=== PATIENT | male | born 1970 | race Caucasian/White ===

== ENCOUNTER 2019-03-03 09:39 | Inpatient (IN) | payer OTHER ==
[2019-03-03 10:33] VITALS: BMI 45.6
--- NOTE | 2019-03-03 11:03 | HP ---
CIWA Score Nausea/Vomitin-No Nausea/No Vomiting Muscle Tremors: 2 Anxiety: 2 Agitation: 2 Paroxysmal Sweats: No Perspiration Orientation: 0-Oriented Tacttile Disturbances: 2-Mild Itch/Numbness/Burn Auditory Disturbances: 0-None Visual Disturbances: 0-None Headache: 5-Severe CIWA-Ar Total Score: 13 - Admission Criteria OASAS Guidelines: Admission for Medically Managed Detox: Requires at least one of the followin. CIWA greater than 12 2. Seizures within the past 24 hours 3. Delirium tremens within the past 24 hours 4. Hallucinations within the past 24 hours 5. Acute intervention needed for co occurring medical disorder 6. Acute intervention needed for co occurring psychiatric disorder 7. Severe withdrawal that cannot be handled at a lower level of care (continued vomiting, continued diarrhea, abnormal vital signs) requiring intravenous medication and/or fluids 8. Admission ROS S - HPI Allergies/Adverse Reactions: Allergies Allergy/AdvReac Type Severity Reaction Status Date / Time Fish Containing Products Allergy Severe Hives Verified 03/03/19 10:10 Pork/Porcine Containing Allergy Verified 03/03/19 13:04 Products History of Present Illness: pt here requesting detox from etoh use , reports use since yesterday x " most of " 2 pints liquor brought into residential facility by another resident , pt sent to [facility] by facility , currently reports " I need another drink " , pt states he has been in a residential program x 90 days - sober , and in [facility] incarceration x 90 days prior , reports tremors , blackouts , denies seizures , denies falls while intoxicated, first age of use 16 , heavily since 20 , intermittent sobriety x 2 years w/ AA meetings 2011 , relapsed after 2/2 family issues . pMHX : htn , DM dx 2014 , DM neuropathy , hypothyroidism , hld PSHX : denies PSych : bipolar d/o , depression , denies SI / HI , suicide attempts x 3 most recently 2017 w/ meds . tobacco : 1/2 ppd . SHX : lives in residential program [id number]. Exam Limitations: Clinical Condition, Intoxication - Ebola screening Have you traveled outside of the country in the last 21 days: No (N) Have you had contact with anyone from an Ebola affected area: No Do you have a fever: No - Review of Systems Constitutional: See HPI EENT: reports: See HPI Respiratory: reports: No Symptoms reported Cardiac: reports: No Symptoms Reported GI: reports: Nausea : reports: No Symptoms Reported Musculoskeletal: reports: No Symptoms Reported Integumentary: reports: No Symptoms Reported Neuro: reports: See HPI, Headache, Numbness, Paresthesia, Pre-Existing Deficit, Tremors Endocrine: reports: See HPI Psychiatric: reports: Orientated x3, Anxious Patient History - Smoking Cessation Smoking history: Current every day smoker Have you smoked in the past 12 months: Yes Hx Chewing Tobacco Use: No Initiated information on smoking cessation: No - Substances abused Alcohol Substance route: Oral Frequency: Daily Amount used: 3 pints Age of first use: 16 Date of last use: 03/02/19 Family Disease History - Family Disease History Family Disease History: Diabetes: Mother (d. 80 HTN, DM , esrd on HD ), Other : Father (unknown ), Mother, Brother (1 , A & W), Sister (3, A & W ), Son (6, A & W ) Admission Physical Exam S - Vital Signs Vital Signs: Vital Signs - 24 hr 03/03/19 03/03/19 10:26 10:52 Temperature 97.9 F 97.9 F Pulse Rate 104 H 104 H Respiratory 19 19 Rate Blood Pressure 126/84 126/84 - Physical General Appearance: Yes: Disheveled, Alcohol on Breath, Intoxicated, Tremorous, Anxious HEENTM: Yes: EOMI, Hearing grossly Normal, Normocephalic Respiratory: Yes: Chest Non-Tender, Lungs Clear, Normal Breath Sounds, No Respiratory Distress, No Accessory Muscle Use Neck: Yes: No masses,lesions,Nodules, Trachea in good position Cardiology: Yes: Regular Rhythm, Regular Rate, S1, S2, Tachycardia Abdominal: Yes: Non Tender, Soft, Protuberent Musculoskeletal: Yes: Gait Steady Extremities: Yes: Normal Capillary Refill, Non-Tender, Tremors, Other (bret LE varicose v) Neurological: Yes: Fully Oriented, Alert, Motor Strength 5/5 Integumentary: Yes: Warm - Diagnostic (1) Alcohol intoxication Current Visit: Yes Status: Acute (2) Alcohol abuse Current Visit: Yes Status: Acute Breathalyzer - Breathalyzer Breathalyzer: 0.026 Urine Drug Screen - Test Device Lot number: [id number] Expiration date: 12/01/20 - Control Is test valid?: Yes - Results Drug screen NEGATIVE: Yes Inpatient Rehab Admission - Rehab Decision to Admit Inpatient rehab admission?: No
[2019-03-03] MEDS ORDERED: ALBUTEROL SO4 8 GM HFA INHALER IH PRN (12:56)
[2019-03-03] MEDS ORDERED: ACETAMINOPHEN 325 MG TABLET (FP) PO PRN ×2 (13:02)
[2019-03-03] MEDS ORDERED: MAGNESIUM HYDROX 2400MG/30ML ORAL SUSPENSION 30 ML CUP PO PRN (13:02)
[2019-03-03] MEDS ORDERED: MELATONIN 5 MG TABLETS PO PRN (13:02)
[2019-03-03] MEDS ORDERED: diazePAM 5 MG TABLET PO PRN (13:02)
[2019-03-03] MEDS ORDERED: NICOTINE POLACRILEX 2 MG GUM BUC PRN (13:02)
[2019-03-03] MEDS ORDERED: MAGNESIUM CITRATE 300 ML BOTTLE PO PRN (13:02)
[2019-03-03] MEDS ORDERED: hydrOXYzine PAMOATE 25 MG CAPSULE (FP) PO PRN (13:02)
[2019-03-03] MEDS ORDERED: MENTHOL/PHENOL 1 EACH UD MM PRN (13:02)
[2019-03-03] MEDS ORDERED: BISMUTH SUBSALICYLATE 524 MG/30 ML UD PO PRN (13:02)
[2019-03-03] MEDS ORDERED: MAG HYDROX/AL HYDROX/SIMETH 30 ML UNIT-DOSE CUP PO PRN (13:02)
[2019-03-03] MEDS ORDERED: guaiFENesin/D-METHORPHAN HB 10 ML UNIT-DOSE CUPS PO PRN (13:06)
[2019-03-03] MEDS: LEVOTHYROXINE NA 25 MCG TABLET (FP) PO SCH (14:46)
[2019-03-03] MEDS: diazePAM 5 MG TABLET PO SCH ×2 (14:46→22:01)
[2019-03-03] MEDS: ASPIRIN 81 MG CHEWABLE TABLETS PO SCH (14:47)
--- NOTE | 2019-03-03 15:40 | CONSULT ---
[facility] Psychiatric Consult - Data Date of interview: 03/03/19 Admission source: [facility] Identifying data: Patient is a 48 year old single male, father of five, unemployed, homeless, and is supported by public assistance. This is patient's first admission to detox at [facility]. Patient admitted to for alcohol dependence. Substance Abuse History: Substances abused. Alcohol. Substance route: Oral. Frequency: Daily. Amount used: 3 pints. Age of first use: 16. Date of last use: 03/02/19 Medical History: hypertension, diabetes, DM Neuropathy, hypothyroidism, hyperlipidemia Psychiatric History: Patient's first psychiatric contact was in 2004 after reporting severe depression and auditory/visual hallucinations. Mr. Nunez was treated with remeron and seroquel. Throughout the years he reports a total of eight psychiatric hospitalizations ([facility], [facility], [facility], [facility]) most recently at [facility] [place] in October of 2017 for depression and auditory hallucinations. Mr. Nunez reports h/o one suicide attempt via overdose in 2011 after hearing command auditory hallucinations to harm himself. He also reports h/o self multilation via cutting. Mr. Nunez is currently receiving psychiatric care at [facility] and is prescribed haldol 5mg + Depakote 1000mg HS + Wellbutrin 300mg XL. He was initally on haldol 10mg but states the haldol was lowered to 5mg last week. Medications confirmed through external records. Patient also appears to be a reliable historian. At present, patient denies psychotic, manic, or depressive symptoms. Physical/Sexual Abuse/Trauma History: denies Mental Status Exam - Mental Status Exam Alert and Oriented to: Time, Place, Person Cognitive Function: Good Patient Appearance: Well Groomed Mood: Euthymic Affect: Appropriate Patient Behavior: Cooperative Speech Pattern: Appropriate Voice Loudness: Moderately Soft/Quiet Thought Process: Goal Oriented Thought Disorder: Not Present Hallucinations: Denies Suicidal Ideation: Denies Homicidal Ideation: Denies Insight/Judgement: Poor Sleep: Fair Appetite: Fair Muscle strength/Tone: Normal Gait/Station: Normal Psychiatric Findings - Problem List ([place] 1, 2,3) (1) Schizoaffective disorder Current Visit: Yes Status: Chronic Qualifiers: Schizoaffective disorder type: depressive Qualified Code(s): F25.1 - Schizoaffective disorder, depressive type (2) Alcohol abuse Current Visit: Yes Status: Acute - Initial Treatment Plan Initial Treatment Plan: Psychoeducation provided. Detoxification in progress. Will order Wellbutrin 300mg XL daily Haldol 5mg HS + Depakote 1000mg HS. Valproic acid level ordered. Benefits and side effects discussed. Verbal consent given.
[2019-03-03] MEDS: METFORMIN HCL 500 MG PO SCH (17:21)
[2019-03-03] MEDS: LOSARTAN POTASSIUM 25 MG TABLET PO SCH (17:21)
[2019-03-03] MEDS: CEPHALEXIN MONOHYDRATE 250 MG CAPSULE (FP) PO SCH ×2 (17:21→23:20)
[2019-03-03] MEDS: INSULIN SLIDING SCALE (NOVOLOG) 1 VIAL SQ SCH ×2 (17:22→22:02)
[2019-03-03] MEDS: DIVALPROEX SODIUM 500 MG TABLET E.C. PO SCH (22:01)
[2019-03-03] MEDS: THIAMINE HCL 100 MG TABLET (FP) PO SCH (22:01)
[2019-03-03] MEDS: HALOPERIDOL 5 MG TABLET (FP) PO SCH (22:02)
[2019-03-03] MEDS: INSULIN (LEVEMIR) 100 UNITS/ML UNITS SQ SCH (22:23)
[2019-03-04] MEDS: CEPHALEXIN MONOHYDRATE 250 MG CAPSULE (FP) PO SCH ×4 (05:31→23:36)
[2019-03-04] MEDS: diazePAM 5 MG TABLET PO SCH ×3 (05:31→23:04)
[2019-03-04] MEDS: INSULIN SLIDING SCALE (NOVOLOG) 1 VIAL SQ SCH ×3 (06:18→17:24)
[2019-03-04] MEDS: METFORMIN HCL 500 MG PO SCH ×2 (06:18→17:19)
[2019-03-04] MEDS: LEVOTHYROXINE NA 25 MCG TABLET (FP) PO SCH (06:18)
[2019-03-04] MEDS: PRENATAL VITAMINS W/ FOLIC ACID TABLET (FP) PO SCH (10:24)
[2019-03-04] MEDS: LOSARTAN POTASSIUM 25 MG TABLET PO SCH (10:24)
[2019-03-04] MEDS: ASPIRIN 81 MG CHEWABLE TABLETS PO SCH (10:24)
[2019-03-04 10:40] LABS: HEMATOCRIT 42.9 % (35.4-49); HEMOGLOBIN 13.7 GM/dL (11.7-16.9); MCH 29.1 pg (25.7-33.7); MEAN CELL VOLUME 91.1 fl (80-96); MEAN PLT VOLUME 8.1 fl (7.5-11.1); PLATELET COUNT 329 K/MM3 (134-434); RBC 4.71 M/mm3 (4.00-5.60); RDW 14.3 % (11.9-15.9); WHITE BLOOD COUNT 11.1 K/mm3 (4.0-10.0)
[2019-03-04 11:42] LABS: ALBUMIN 3.5 g/dl (3.4-5.0); BILIRUBIN,TOTAL 0.5 mg/dL (0.2-1); CREATININE 0.8 mg/dL (0.55-1.3); POTASSIUM 3.9 mmol/L (3.5-5.1); TOT PROT 6.6 g/dl (6.4-8.2)
--- NOTE | 2019-03-04 16:49 | PN ---
S CIWA - CIWA Score Nausea/Vomitin-No Nausea/No Vomiting Muscle Tremors: 3 Anxiety: 2 Agitation: 0-Normal Activity Paroxysmal Sweats: 3 Orientation: 2-Disoriented Date<2 days Tacttile Disturbances: 0-None Auditory Disturbances: 3-Moderate Harsh/Frighten Visual Disturbances: 1-Very Mild Sensitivity Headache: 0-None Present CIWA-Ar Total Score: 14 BHS Progress Note (SOAP) Subjective: Sweating, Fatigue, Tremors. Objective: PATIENT A & O X 2 (UNCERTAIN ABOUT CURRENT DAY / DATE). PATIENT OBSERVED AMBULATING ON UNIT UNASSISTED. IN NO ACUTE DISTRESS. PATIENT IS AFEBRILE. 03/04/19 16:50 Vital Signs Temperature 97.5 F L 03/04/19 13:45 Pulse Rate 93 H 03/04/19 13:45 Respiratory Rate 20 03/04/19 13:45 Blood Pressure 110/64 03/04/19 13:45 O2 Sat by Pulse Oximetry (%) Laboratory Tests 03/03/19 03/03/19 03/03/19 13:41 16:22 21:41 WBC RBC Hgb Hct MCV MCH MCHC RDW Plt Count MPV Sodium Potassium Chloride Carbon Dioxide Anion Gap BUN Creatinine Est GFR (CKD-EPI)AfAm Est GFR (CKD-EPI)NonAf POC Glucometer 125 163 127 Random Glucose Calcium Total Bilirubin AST ALT Alkaline Phosphatase Total Protein Albumin Valproic Acid 03/04/19 03/04/19 03/04/19 05:31 07:35 07:35 WBC 11.1 H RBC 4.71 Hgb 13.7 Hct 42.9 MCV 91.1 MCH 29.1 MCHC 32.0 RDW 14.3 Plt Count 329 MPV 8.1 Sodium 142 Potassium 3.9 Chloride 103 Carbon Dioxide 27 Anion Gap 12 BUN 11 Creatinine 0.8 Est GFR (CKD-EPI)AfAm 124.16 Est GFR (CKD-EPI)NonAf 107.13 POC Glucometer 116 Random Glucose 113 H Calcium 9.0 Total Bilirubin 0.5 AST 17 ALT 21 Alkaline Phosphatase 78 Total Protein 6.6 Albumin 3.5 Valproic Acid 03/04/19 07:35 WBC RBC Hgb Hct MCV MCH MCHC RDW Plt Count MPV Sodium Potassium Chloride Carbon Dioxide Anion Gap BUN Creatinine Est GFR (CKD-EPI)AfAm Est GFR (CKD-EPI)NonAf POC Glucometer Random Glucose Calcium Total Bilirubin AST ALT Alkaline Phosphatase Total Protein Albumin Valproic Acid 55.1 LABS NOTED. RPR RESULT PENDING. 03/04/19 16:52 Assessment: 03/04/19 16:51 WITHDRAWAL SYMPTOMS. LEUKOCYTOSIS. 03/04/19 16:52 Plan: CONTINUE DETOX. INCREASE DAILY PO FLUID INTAKE. REPEAT CBC TOMORROW AM FOR ELEVATED ADMISSION WBC LEVEL.
[2019-03-04] MEDS: HALOPERIDOL 5 MG TABLET (FP) PO SCH (23:00)
[2019-03-04] MEDS: THIAMINE HCL 100 MG TABLET (FP) PO SCH (23:00)
[2019-03-04] MEDS: DIVALPROEX SODIUM 500 MG TABLET E.C. PO SCH (23:00)
[2019-03-04] MEDS: INSULIN (LEVEMIR) 100 UNITS/ML UNITS SQ SCH (23:03)
[2019-03-05] MEDS: CEPHALEXIN MONOHYDRATE 250 MG CAPSULE (FP) PO SCH ×4 (05:22→23:29)
[2019-03-05] MEDS ORDERED: diazePAM 5 MG TABLET PO ONE (06:00)
[2019-03-05] MEDS: INSULIN SLIDING SCALE (NOVOLOG) 1 VIAL SQ SCH ×2 (06:12→17:06)
[2019-03-05] MEDS: METFORMIN HCL 500 MG PO SCH ×2 (06:13→17:04)
[2019-03-05] MEDS: LEVOTHYROXINE NA 25 MCG TABLET (FP) PO SCH (06:14)
[2019-03-05] MEDS: LOSARTAN POTASSIUM 25 MG TABLET PO SCH (10:40)
[2019-03-05] MEDS: PRENATAL VITAMINS W/ FOLIC ACID TABLET (FP) PO SCH (10:41)
[2019-03-05 10:51] LABS: BASO % 0.5 % (0-2.0); EOS % 2.2 % (0-4.5); HEMATOCRIT 43.5 % (35.4-49); LYMPH % 44.1 % (8-40); MCH 29.3 pg (25.7-33.7); MCHC 32.2 g/dl (32.0-35.9); MEAN CELL VOLUME 90.8 fl (80-96); MEAN PLT VOLUME 7.9 fl (7.5-11.1); NEUT % 45.2 % (42.8-82.8); PLATELET COUNT 368 K/MM3 (134-434); WHITE BLOOD COUNT 12.5 K/mm3 (4.0-10.0)
[2019-03-05] MEDS: ASPIRIN 81 MG CHEWABLE TABLETS PO SCH (11:29)
--- NOTE | 2019-03-05 15:25 | PN ---
S CIWA - CIWA Score Nausea/Vomitin-Mild Nausea/No Vomiting Muscle Tremors: 3 Anxiety: 3 Agitation: 3 Paroxysmal Sweats: 3 Orientation: 0-Oriented Tacttile Disturbances: 0-None Auditory Disturbances: 0-None Visual Disturbances: 0-None Headache: 0-None Present CIWA-Ar Total Score: 13 BHS Progress Note (SOAP) Subjective: shakes sweat Objective: 03/05/19 15:28 A & O x 3 anxious ambulating steadily Vital Signs Temp 97.2 F L 03/05/19 09:47 Pulse 109 H 03/05/19 09:47 Resp 18 03/05/19 09:47 BP 132/80 03/05/19 09:47 Pulse Ox Laboratory Last Values WBC 12.5 K/mm3 (4.0-10.0) H 03/05/19 07:40 RBC 4.80 M/mm3 (4.00-5.60) 03/05/19 07:40 Hgb 14.0 GM/dL (11.7-16.9) 03/05/19 07:40 Hct 43.5 % (35.4-49) 03/05/19 07:40 MCV 90.8 fl (80-96) 03/05/19 07:40 MCH 29.3 pg (25.7-33.7) 03/05/19 07:40 MCHC 32.2 g/dl (32.0-35.9) 03/05/19 07:40 RDW 14.0 % (11.9-15.9) 03/05/19 07:40 Plt Count 368 K/MM3 (134-434) 03/05/19 07:40 MPV 7.9 fl (7.5-11.1) 03/05/19 07:40 Absolute Neuts (auto) 5.7 K/mm3 (1.5-8.0) 03/05/19 07:40 Neutrophils % 45.2 % (42.8-82.8) 03/05/19 07:40 Lymphocytes % 44.1 % (8-40) H 03/05/19 07:40 Monocytes % 8.0 % (3.8-10.2) 03/05/19 07:40 Eosinophils % 2.2 % (0-4.5) 03/05/19 07:40 Basophils % 0.5 % (0-2.0) 03/05/19 07:40 Nucleated RBC % 0 % (0-0) 03/05/19 07:40 Sodium 142 mmol/L (136-145) 03/04/19 07:35 Potassium 3.9 mmol/L (3.5-5.1) 03/04/19 07:35 Chloride 103 mmol/L (98-107) 03/04/19 07:35 Carbon Dioxide 27 mmol/L (21-32) 03/04/19 07:35 Anion Gap 12 MMOL/L (8-16) 03/04/19 07:35 BUN 11 mg/dL (7-18) 03/04/19 07:35 Creatinine 0.8 mg/dL (0.55-1.3) 03/04/19 07:35 Est GFR (CKD-EPI)AfAm 124.16 03/04/19 07:35 Est GFR (CKD-EPI)NonAf 107.13 03/04/19 07:35 POC Glucometer 115 UNITS (80-120) 03/05/19 05:21 Random Glucose 113 mg/dL (74-106) H 03/04/19 07:35 Calcium 9.0 mg/dL (8.5-10.1) 03/04/19 07:35 Total Bilirubin 0.5 mg/dL (0.2-1) 03/04/19 07:35 AST 17 U/L (15-37) 03/04/19 07:35 ALT 21 U/L (13-61) 03/04/19 07:35 Alkaline Phosphatase 78 U/L (45-117) 03/04/19 07:35 Total Protein 6.6 g/dl (6.4-8.2) 03/04/19 07:35 Albumin 3.5 g/dl (3.4-5.0) 03/04/19 07:35 Valproic Acid 55.1 ug/ml (50-100) 03/04/19 07:35 RPR Titer Nonreactive (NONREACTIVE) 03/04/19 07:35 Labs noted Elevated random glucose -pt is diabetic Assessment: 03/05/19 15:31 withdrawal sx Plan: continue detox Increase water hydration continue hyperglycemic agent
--- NOTE | 2019-03-05 15:42 | EKG ---
Test Reason : Blood Pressure : / mmHG Vent. Rate : 097 BPM Atrial Rate : 097 BPM P-R Int : 148 ms QRS Dur : 096 ms QT Int : 358 ms P-R-T Axes : 061 062 013 degrees QTc Int : 454 ms NORMAL SINUS RHYTHM NORMAL ECG NO PREVIOUS ECGS AVAILABLE Confirmed by ENRIKE MERINO MD ([id number]) on 03/05/2019 3:41:33 PM Referred By: Confirmed By:ENRIKE MERINO MD
[2019-03-05] MEDS: HALOPERIDOL 5 MG TABLET (FP) PO SCH (22:16)
[2019-03-05] MEDS: DIVALPROEX SODIUM 500 MG TABLET E.C. PO SCH (22:16)
[2019-03-05] MEDS: INSULIN (LEVEMIR) 100 UNITS/ML UNITS SQ SCH (22:16)
[2019-03-05] MEDS: THIAMINE HCL 100 MG TABLET (FP) PO SCH (22:16)
[2019-03-06] MEDS: CEPHALEXIN MONOHYDRATE 250 MG CAPSULE (FP) PO SCH (05:24)
[2019-03-06] MEDS: METFORMIN HCL 500 MG PO SCH (06:21)
[2019-03-06] MEDS: LEVOTHYROXINE NA 25 MCG TABLET (FP) PO SCH (06:21)
[2019-03-06] MEDS: INSULIN SLIDING SCALE (NOVOLOG) 1 VIAL SQ SCH (06:22)
[2019-03-06 09:18] VITALS: BP 125/81; PULSE 108; TEMP 97.5
[2019-03-06] MEDS: PRENATAL VITAMINS W/ FOLIC ACID TABLET (FP) PO SCH (09:34)
[2019-03-06] MEDS: ASPIRIN 81 MG CHEWABLE TABLETS PO SCH (09:34)
[2019-03-06] MEDS: LOSARTAN POTASSIUM 25 MG TABLET PO SCH (09:34)
--- NOTE | 2019-03-06 13:50 | DS ---
[facility] Detox Discharge Summary Admission Date: 03/03/19 Discharge Date: 03/06/19 - History Present History: Alcohol Dependence Additional Comments: 48 years old male admitted on 03/03/19 for alcohol withdrawal stabilization completed detox regimen tolerate valium twila well aftercare [facility] Pertinent Past History: bring in medication list and lab report to [facility] aftercare appointment - Physical Exam Results Vital Signs: Vital Signs Temperature 97.5 F L 03/06/19 09:17 Pulse Rate 108 H 03/06/19 09:17 Respiratory Rate 18 03/06/19 09:17 Blood Pressure 125/81 03/06/19 09:17 O2 Sat by Pulse Oximetry (%) Pertinent Admission Physical Exam Findings: alcohol withdrawal sx Laboratory Last Values WBC 12.5 K/mm3 (4.0-10.0) H 03/05/19 07:40 RBC 4.80 M/mm3 (4.00-5.60) 03/05/19 07:40 Hgb 14.0 GM/dL (11.7-16.9) 03/05/19 07:40 Hct 43.5 % (35.4-49) 03/05/19 07:40 MCV 90.8 fl (80-96) 03/05/19 07:40 MCH 29.3 pg (25.7-33.7) 03/05/19 07:40 MCHC 32.2 g/dl (32.0-35.9) 03/05/19 07:40 RDW 14.0 % (11.9-15.9) 03/05/19 07:40 Plt Count 368 K/MM3 (134-434) 03/05/19 07:40 MPV 7.9 fl (7.5-11.1) 03/05/19 07:40 Absolute Neuts (auto) 5.7 K/mm3 (1.5-8.0) 03/05/19 07:40 Neutrophils % 45.2 % (42.8-82.8) 03/05/19 07:40 Lymphocytes % 44.1 % (8-40) H 03/05/19 07:40 Monocytes % 8.0 % (3.8-10.2) 03/05/19 07:40 Eosinophils % 2.2 % (0-4.5) 03/05/19 07:40 Basophils % 0.5 % (0-2.0) 03/05/19 07:40 Nucleated RBC % 0 % (0-0) 03/05/19 07:40 Sodium 142 mmol/L (136-145) 03/04/19 07:35 Potassium 3.9 mmol/L (3.5-5.1) 03/04/19 07:35 Chloride 103 mmol/L (98-107) 03/04/19 07:35 Carbon Dioxide 27 mmol/L (21-32) 03/04/19 07:35 Anion Gap 12 MMOL/L (8-16) 03/04/19 07:35 BUN 11 mg/dL (7-18) 03/04/19 07:35 Creatinine 0.8 mg/dL (0.55-1.3) 03/04/19 07:35 Est GFR (CKD-EPI)AfAm 124.16 03/04/19 07:35 Est GFR (CKD-EPI)NonAf 107.13 03/04/19 07:35 POC Glucometer 106 UNITS (80-120) 03/06/19 05:24 Random Glucose 113 mg/dL (74-106) H 03/04/19 07:35 Calcium 9.0 mg/dL (8.5-10.1) 03/04/19 07:35 Total Bilirubin 0.5 mg/dL (0.2-1) 03/04/19 07:35 AST 17 U/L (15-37) 03/04/19 07:35 ALT 21 U/L (13-61) 03/04/19 07:35 Alkaline Phosphatase 78 U/L (45-117) 03/04/19 07:35 Total Protein 6.6 g/dl (6.4-8.2) 03/04/19 07:35 Albumin 3.5 g/dl (3.4-5.0) 03/04/19 07:35 Valproic Acid 55.1 ug/ml (50-100) 03/04/19 07:35 RPR Titer Nonreactive (NONREACTIVE) 03/04/19 07:35 lab noted - Treatment Hospital Course: Detox Protocol Followed, Detoxed Safely, Responded well, Discharged Condition Good, Rehab Referral Accepted Patient has Accepted a Rehab Referral to: [facility] - Medication Discharge Medications: Ambulatory Orders Albuterol Sulfate Inhaler - [Ventolin HFA Inhaler -] 1 - 2 inh PO QID 03/03/19 Aspirin [ASA -] 81 mg PO DAILY 03/03/19 Atorvastatin Ca [Lipitor] 20 mg PO HS 03/03/19 Bupropion HCl [Wellbutrin -] 300 mg PO DAILY 03/03/19 Bupropion HCl [Wellbutrin Xl] 300 mg PO DAILY 03/03/19 Divalproex *ER* [Depakote *ER* -] 1,000 mg PO HS 03/03/19 Divalproex [Depakote -] 1,000 mg PO HS 03/03/19 Ergocalciferol [Vitamin D2] 50,000 unit PO Q7D@1000 03/03/19 Escitalopram Oxalate [Lexapro -] 10 mg PO DAILY 03/03/19 Folic Acid 1 mg PO DAILY 03/03/19 Gabapentin 600 mg PO TID 03/03/19 Haloperidol [Haldol -] 10 mg PO HS 03/03/19 Insulin Aspart [Novolog] See Protocol SQ AC 03/03/19 Insulin Glargine,Hum.rec.anlog [Lantus] 27 unit SQ HS 03/03/19 Levothyroxine [Synthroid -] 25 mcg PO DAILY 03/03/19 Losartan Potassium 25 mg PO DAILY 03/03/19 Metformin HCl [Glucophage] 1,000 mg PO BID 03/03/19 - Diagnosis (1) Alcohol dependence with uncomplicated withdrawal Status: Acute (2) Bipolar I disorder Status: Suspected (3) Hyperlipidemia Status: Chronic Qualifiers: Hyperlipidemia type: unspecified Qualified Code(s): E78.5 - Hyperlipidemia , unspecified - AMA Did Patient Leave Against Medical Advice: No
== END 2019-03-06 09:49 | disposition home or self-care (01) | DRG 775 ==
LOC: YASAS 09:39 → Y3N 13:36
PROVIDERS: ADMIT Surgery; ATTEND Surgery
PROC: HZ2ZZZZ Detoxification Services for Substance Abuse Treatment (ICD-10-PCS; principal; 2019-03-03)
DX: F10.230 Alcohol dependence with withdrawal, uncomplicated (principal); F25.1 Schizoaffective disorder, depressive type; F31.9 Bipolar disorder, unspecified; E11.65 Type 2 diabetes mellitus with hyperglycemia; E11.42 Type 2 diabetes mellitus with diabetic polyneuropathy; Z79.4 Long term (current) use of insulin; E03.9 Hypothyroidism, unspecified; D72.829 Elevated white blood cell count, unspecified; I10 Essential (primary) hypertension; Z91.5 Personal history of self-harm; Z91.013 Allergy to seafood; Z91.018 Allergy to other foods
CPT/HCPCS: 36415; 71045-TC-FY; 80053; 80164; 82962; 85025; 85027; 86593; 93005; 93010

== ENCOUNTER 2020-04-22 11:31 | Inpatient (IN) | payer OTHER ==
--- NOTE | 2020-04-22 11:53 | BHS.RME ---
Substance Use & Tx History - Substance Use History Alcohol Substance amount: 4 pints vodka Frequency of use: Daily Substance route: Oral Date of Last Use: 04/21/20 Cocaine- Powder Substance amount: $40 Frequency of use: Daily Substance route: Inhalation (ex: sniffing or snorting) Date of Last Use: 04/21/20 Nicotine Substance amount: 10 ciggs Frequency of use: Daily Substance route: Smoking Date of Last Use: 04/21/20 Physical/Psych/Mental Status - Behavior General Behavior: Increased activity (restlessness, agitation) Eye Contact: Normal - Cooperativeness Cooperativeness: Cooperative - Thinking Thought Processes: Tight, Logical, Goal Directed - Physical Health Problems Is patient presently having any pain?: No Does patient presently have any injuries (include location): No Does patient currently have a fever: No Is patient : No CIWA Nausea/Vomitin Muscle Tremors: 4-Moderate,w/Arms Extend Anxiety: 3 Agitation: 3 Paroxysmal Sweats: 4-Forehead w/Sweat Beads Orientation: 1-Uncertain about Date Tacttile Disturbances: 0-None Auditory Disturbances: 0-None Visual Disturbances: 0-None Headache: 1-Very Mild CIWA-Ar Total Score: 18
--- NOTE | 2020-04-22 13:02 | HP ---
CIWA Score Nausea/Vomitin Muscle Tremors: 4-Moderate,w/Arms Extend Anxiety: 3 Agitation: 3 Paroxysmal Sweats: 4-Forehead w/Sweat Beads Orientation: 1-Uncertain about Date Tacttile Disturbances: 0-None Auditory Disturbances: 0-None Visual Disturbances: 0-None Headache: 1-Very Mild CIWA-Ar Total Score: 18 - Admission Criteria OASAS Guidelines: Admission for Medically Managed Detox: Requires at least one of the followin. CIWA greater than 12 2. Seizures within the past 24 hours 3. Delirium tremens within the past 24 hours 4. Hallucinations within the past 24 hours 5. Acute intervention needed for co occurring medical disorder 6. Acute intervention needed for co occurring psychiatric disorder 7. Severe withdrawal that cannot be handled at a lower level of care (continued vomiting, continued diarrhea, abnormal vital signs) requiring intravenous medication and/or fluids 8. Admitting History and Physical - Admission Chief Complaint: Mr. Nunez is a 49 yo man who presents to [facility] stating "I need to stop drinking, I've got a real bad habit and I drink too much". History of Present Illness: Mr. Nunez is a 49 yo man who presents to [facility] stating "I need to stop drinking, I've got a real bad habit and I drink too much". He was last here in 2019 and completed detox. He was at [facility] yesterday with suicidal ideation. He stated he has been depressed and thought of hanging himself. Review of [place] record: Diagnosis: alcohol use disorder, moderate, cocaine use disorder. Pt states he was treated with Librium at [place]. Additionally, he states he was seen by Psychiatry, not medicated. PMH: HLD, DM, HTN, hypothyroidism, DM polyneuropathy, asthma, 3 herniated lumbar discs/cane to ambulate PSH: none Psych: Bipolar: Depakote, Wellbutrin, Haldol, Cymbalta, no meds in 2 weeks/ran out. 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 Cocaine- Powder Substance amount: $40 Frequency of use: Daily Substance route: Inhalation (ex: sniffing or snorting) Date of Last Use: 04/21/20 First use age 28y Nicotine Substance amount: 10 ciggs Frequency of use: Daily Substance route: Smoking Date of Last Use: 04/21/20 First use age 16y History Source: Patient Limitations to Obtaining History: No Limitations - Smoking History Smoking history: Current every day smoker Have you smoked in the past 12 months: Yes Aproximately how many cigarettes per day: 10 Admission ROS [facility] - HPI Allergies/Adverse Reactions: Allergies Allergy/AdvReac Type Severity Reaction Status Date / Time Fish Containing Products Allergy Severe Hives Verified 03/03/19 10:10 Pork/Porcine Containing Allergy Verified 03/03/19 13:04 Products Exam Limitations: No Limitations - Ebola screening Have you traveled outside of the country in the last 21 days: No Have you been sick,other than usual withdrawal symptoms: No Do you have a fever: No - Review of Systems Constitutional: No Symptoms Reported EENT: reports: No Symptoms Reported Respiratory: reports: No Symptoms reported Cardiac: reports: No Symptoms Reported GI: reports: Nausea : reports: No Symptoms Reported Musculoskeletal: reports: Back Pain (chronic) Integumentary: reports: No Symptoms Reported Neuro: reports: Headache Endocrine: reports: Other (DM, does not monitor home glucose/ no machine) Hematology: reports: No Symptoms Reported Psychiatric: reports: Anxious Patient History - Patient Medical History Hx Asthma: No Hx Chronic Obstructive Pulmonary Disease (COPD): No Hx Cardiac Disorders: No Hx Hypertension: Yes Hx Seizures: No Hx Diabetes: No Hx Gastrointestinal Disorders: No Hx Genitourinary Disorders: No Hx Sexually Transmitted Disorders: No Hx Renal Disease (ESRD): No Hx Depression: Yes Hx Suicide Attempt: Yes (last attempt 2017) Hx Schizophrenia: No - Patient Surgical History Past Surgical History: No Hx Neurologic Surgery: No Hx Cataract Extraction: No Hx Cardiac Surgery: No Hx Lung Surgery: No Hx Breast Surgery: No Hx Breast Biopsy: No Hx Abdominal Surgery: No Hx Appendectomy: No Hx Cholecystectomy: No Hx Genitourinary Surgery: No Hx Section: No Hx Orthopedic Surgery: No Anesthesia Reaction: No - Smoking Cessation Smoking history: Current every day smoker Have you smoked in the past 12 months: Yes Aproximately how many cigarettes per day: 10 Cigars Per Day: 0 Hx Chewing Tobacco Use: No Initiated information on smoking cessation: Yes 'Breaking Loose' booklet given: 04/22/20 Admission Physical Exam [facility] - Physical General Appearance: Yes: No Apparent Distress, Nourished, Appropriately Dressed HEENTM: Yes: EOMI, Hearing grossly Normal, Normocephalic, Normal Voice Respiratory: Yes: Lungs Clear, Normal Breath Sounds, No Accessory Muscle Use Neck: Yes: Within Normal Limits, Supple Breast: Yes: Breast Exam Deferred Cardiology: Yes: Regular Rhythm, Regular Rate, S1, S2 Abdominal: Yes: Normal Bowel Sounds, Non Tender, Soft, Protuberent Genitourinary: Yes: Other (deferred) Back: Yes: Within Normal Limits Musculoskeletal: Yes: Gait Steady (with the use of a cane) Extremities: Yes: Normal Inspection, Non-Tender Neurological: Yes: Alert, Normal Response Integumentary: Yes: Normal Color, Dry, Warm, Other (right thumb and index with healing flaky erythematous area, ~ .5 inch, pt states that he was depressed and 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) - Diagnostic (1) Cocaine dependence Current Visit: Yes Status: Acute Qualifiers: Substance use status: uncomplicated Qualified Code(s): F14.20 - Cocaine dependence, uncomplicated (2) Nicotine dependence Current Visit: Yes Status: Acute Qualifiers: Nicotine product type: cigarettes (3) HTN (hypertension) Current Visit: Yes Status: Acute Qualifiers: Hypertension type: essential hypertension Qualified Code(s): I10 - Essential (primary) hypertension (4) Diabetes type 2, controlled Current Visit: Yes Status: Chronic Qualifiers: Diabetes mellitus complication status: with neurologic complications Diabetes mellitus complication detail: with polyneuropathy (5) Diabetic polyneuropathy Current Visit: Yes Status: Acute Qualifiers: Diabetes mellitus type: type 2 Qualified Code(s): E11.42 - Type 2 diabetes mellitus with diabetic polyneuropathy (6) Asthma Current Visit: Yes Status: Chronic (7) Alcohol dependence with uncomplicated withdrawal Current Visit: Yes Status: Acute (8) Hyperlipidemia Current Visit: No Status: Chronic Qualifiers: Hyperlipidemia type: unspecified Qualified Code(s): E78.5 - Hyperlipidemia, unspecified (9) Bipolar I disorder Current Visit: No Status: Suspected Cleared for Admission [facility] - Detox or Rehab [facility] Level of Care: Medically Managed Detox Regimen/Protocol: Librium Breathalyzer - Breathalyzer Breathalyzer: 0 Urine Drug Screen - Test Device Lot number: [id number] Expiration date: 06/03/21 - Control Is test valid?: Yes - Results Drug screen NEGATIVE: No Urine drug screen results: GRICELDA-Cocaine, BZO-Benzodiazepines Inpatient Rehab Admission - Rehab Decision to Admit Inpatient rehab admission?: No
[2020-04-22] MEDS ORDERED: ALBUTEROL SO4 HFA INHALER IH PRN (13:13)
[2020-04-22] MEDS ORDERED: MAGNESIUM CITRATE 300 ML BOTTLE PO PRN (13:16)
[2020-04-22] MEDS ORDERED: BISMUTH SUBSALICYLATE 524 MG/30 ML UD PO PRN (13:16)
[2020-04-22] MEDS ORDERED: MAGNESIUM HYDROX 2400MG/30ML ORAL SUSPENSION 30 ML CUP PO PRN (13:16)
[2020-04-22] MEDS ORDERED: MENTHOL/PHENOL 1 EACH UD MM PRN (13:16)
[2020-04-22] MEDS ORDERED: MAG HYDROX/AL HYDROX/SIMETH 30 ML UNIT-DOSE CUP PO PRN (13:16)
[2020-04-22] MEDS ORDERED: ONDANSETRON *ODT* 4 MG TABLET SL PRN (13:16)
[2020-04-22] MEDS ORDERED: METHOCARBAMOL 500 MG TABLET PO PRN (13:16)
[2020-04-22] MEDS ORDERED: ACETAMINOPHEN 325 MG TABLET (FP) PO PRN ×2 (13:16)
[2020-04-22] MEDS ORDERED: chlordiazePOXIDE HCL 25 MG CAPSULE PO PRN (13:16)
[2020-04-22 14:05] VITALS: BMI 43.1
[2020-04-22] MEDS ORDERED: hydrOXYzine PAMOATE 25 MG CAPSULE (FP) PO ONE (14:15)
[2020-04-22] MEDS ORDERED: HALOPERIDOL 5 MG TABLET PO PRN (14:16)
[2020-04-22] MEDS: LEVOTHYROXINE NA 25 MCG TABLET (FP) PO SCH (15:02)
[2020-04-22] MEDS: IBUPROFEN 400 MG TABLET (FP) PO PRN (15:03)
[2020-04-22] MEDS: GABAPENTIN 300 MG CAPSULE PO SCH ×2 (15:03→22:12)
--- NOTE | 2020-04-22 15:04 | PN ---
[facility] Progress Note Note: Psychiatry Attending's note : Psychiatric evaluation requested by Dr Dorman. Reason : patient's suitability for admission to [facility] detoxification unit. In view of recent report (by patient) of suicidal ideation and depressed mood. History as follows (obtained from the patient) : Case of a 49 y/o male, already known to [facility], requesting detoxification. Patient is referred by [facility]. Seen there on 04/21/20 for following complaints : anxious/depressed mood, anhedonia, feelings of hopelessness and suicidal ideation to hang self. In the context of alcohol intoxication + non-adherence to psychotropic medications for past two weeks. Retained for observation, discharged today with referral to [facility] to undergo detoxification treatment. Case presented by medical customer service representative, Dr Mosher. Also discussed with guest services assistant, Dr Dorman (in person). Patient is interviewed. Single male, a father of five, unemployed, homeless, no vocational skills, supported on food stamps. Mr Nunez is observed as a good, coherent and cooperative historian. At ease with interviewer. Keeps good eye contact. Disheveled appearance, obese and appearing much older than his stated age. Patient answers all questions appropriately. " I have so many many problems. I went to [facility] yesterday because I felt so depressed. I had thoughts of suicide ". Patient reports that, yesterday, he experienced ideation to end his life by hanging. " I was without my medications for two weeks ". He also admits to escalating consumption of alcohol (up to four pints of vodka daily). Uses cocaine via snorting (20 dollars/1-2 times weekly). Longitudinal information is remarkable for long standing history of psychiatric illness " I was seeing psychiatrists around town since childhood ". He endorses Bipolar Disorder and Schizophrenia as his diagnoses. Sees a psychiatrist, monthly, at the [facility]PD program. Patient is reportedly managed on a regimen of depakote 500 mg/bid + cymbalta 30 mg/day + haldol 5 mg/bid + wellbutrin XL 150 mg/daily. History of multiple psychiatric hospitalizations ([facility], [facility], [facility], [facility], [facility] and others). Medical profile is consistent with self report of neuropathy, arthritis of both knees, herniated discs, chronic lumbar pain. Patient uses a cane. Distant history of a suicide attempt : deliberate overdose with heroin in 2002. Patient denies occurrence of recent attempts (sporadic ideation). Mental status is remarkable for intact cognition, clear thought processes, absence of delusions, dysphoric mood and constricted affect. Patient denies hallucinations in all sensory modalities at this time (does admit to hearing intermittent/brief, pejorative voices last week). Mr Nunez declares that " using drugs, drinking and not taking my medications have ruined my life ". " I came here to get better ". He vehemently denies suicidal or homicidal ideation, intent or plan. " I want to detox and continue my rehabilitation here or elsewhere ". Mental status is stable. Patient is NOT presenting an immediate danger to self or others. Has fair insight into his conditions. Controlled. He DOES NOT meeting criteria for involuntary commitment to a psychiatric institution for inpatient care. Records ([facility]) are revisited. Diagnosis : Schizoaffective Disorder (depressed) Alcohol use disorder Cocaine use disorder Substance induced mood disorder Insomnia Recommendations : . No indication for constant observation. . May proceed with admission to the detoxification program. . Psychiatry-Liaison will follow as indicated (during hospital course). . Contact made with [facility] ([phone]) : no file on this patient. . Patient gets refills from [facility]. Cutting Room Supervisor called pharmacist at [phone]. . All medications are confirmed (refills picked on 04/17/20 for haldol + cymbalta + depakote / due 04/28/20 for wellbutrin). . Medications resumed as : wellbutrin XL 150 mg po daily cymbalta 30 mg po daily haldol 5 mg po bid depakote 500 mg po bid . Side effects/benefits of these molecules are discussed with the patient. . Mr Nunez grants consent (verbal) to MD for their inclusion in current treatment protocol. . Maintain close observation for safety.
[2020-04-22] MEDS: hydrOXYzine PAMOATE 25 MG CAPSULE (FP) PO SCH ×3 (15:07→22:15)
[2020-04-22] MEDS: LOSARTAN POTASSIUM 25 MG TABLET PO SCH (15:59)
[2020-04-22] MEDS: chlordiazePOXIDE HCL 25 MG CAPSULE PO SCH ×2 (16:59→22:13)
[2020-04-22] MEDS: metFORMIN HCL 500 MG TABLET (FP) PO SCH (16:59)
[2020-04-22 17:43] LABS: ALBUMIN 3.5 g/dl (3.4-5.0); BILIRUBIN,TOTAL 0.5 mg/dL (0.2-1); BLOOD UREA NITROGEN 12.5 mg/dL (7-18); CALCIUM 8.8 mg/dL (8.5-10.1); CREATININE 0.8 mg/dL (0.55-1.3); TOT PROT 6.9 g/dl (6.4-8.2)
[2020-04-22 17:46] LABS: HEMATOCRIT 41.2 % (35.4-49); HEMOGLOBIN 13.4 GM/dL (11.7-16.9); MCH 30.3 pg (25.7-33.7); MCHC 32.5 g/dl (32.0-35.9); MEAN CELL VOLUME 93.3 fl (80-96); MEAN PLT VOLUME 8.2 fl (7.5-11.1); PLATELET COUNT 346 K/MM3 (134-434); RBC 4.42 M/mm3 (4.00-5.60); RDW 13.7 % (11.9-15.9); WHITE BLOOD COUNT 11.2 K/mm3 (4.0-10.0)
--- NOTE | 2020-04-22 18:18 | PN ---
S Progress Note Note: Psychiatry Attending's note (follow-up) : Brief visit at bedside. Patient is resting comfortably in bed. Asleep in room 664. Adjacent to nurse's station. Close observation for safety. No acute issues at this time. Liaison-Psychiatry will follow.
[2020-04-22] MEDS: THIAMINE HCL 100 MG TABLET (FP) PO SCH (22:12)
[2020-04-22] MEDS: DIVALPROEX SODIUM 500 MG TABLET E.C. PO SCH (22:12)
[2020-04-22] MEDS: HALOPERIDOL 5 MG TABLET PO SCH (22:13)
[2020-04-22] MEDS: ATORVASTATIN CA 20 MG TABLET (FP) PO SCH (22:13)
[2020-04-22] MEDS: MELATONIN 5 MG TABLETS PO SCH (22:15)
[2020-04-23] MEDS: chlordiazePOXIDE HCL 25 MG CAPSULE PO SCH ×4 (05:35→22:16)
[2020-04-23] MEDS: GABAPENTIN 300 MG CAPSULE PO SCH ×3 (05:35→22:15)
[2020-04-23] MEDS: hydrOXYzine PAMOATE 25 MG CAPSULE (FP) PO SCH (05:35)
[2020-04-23] MEDS: LEVOTHYROXINE NA 25 MCG TABLET (FP) PO SCH (06:31)
[2020-04-23] MEDS: metFORMIN HCL 500 MG TABLET (FP) PO SCH ×2 (06:31→17:07)
[2020-04-23] MEDS ORDERED: hydrOXYzine PAMOATE 25 MG CAPSULE (FP) PO PRN (08:39)
[2020-04-23] MEDS: DIVALPROEX SODIUM 500 MG TABLET E.C. PO SCH ×2 (10:18→22:16)
[2020-04-23] MEDS: DULoxetine HCL 30 MG CAPSULE.DR PO SCH (10:19)
[2020-04-23] MEDS: PRENATAL VITAMINS W/ FOLIC ACID TABLET (FP) PO SCH (10:19)
[2020-04-23] MEDS: HALOPERIDOL 5 MG TABLET PO SCH ×2 (10:19→22:16)
--- NOTE | 2020-04-23 10:35 | CONSULT ---
[facility] Psychiatric Consult - Data Date of interview: 04/23/20 Admission source: [facility] Identifying data: Patient is a 49 year old single male, father of five, unemployed, homeless, and is supported with welfare assistance. This is one of multiple admissions for patient. Patient admitted to for alcohol, cocaine, and nicotine dependence. Substance Abuse History: Substance Use History. Alcohol. Substance amount: 4 pints vodka. Frequency of use: Daily. Substance route: Oral. Date of Last Use: 04/21/20. First use age 16 y. No seizures. Blackouts, last was one month ago. 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 Cocaine- Powder. Substance amount: $40. Frequency of use: Daily. Substance route: Inhalation (ex: sniffing or snorting). Date of Last Use: 04/21/20. First use age 28y. Nicotine. Substance amount: 10 ciggs. Frequency of use: Daily. Substance route: Smoking. Date of Last Use: 04/21/20. First use age 16y. History Source: Patient. Limitations to Obtaining History: No Limitations Medical History: HLD, DM, HTN, hypothyroidism, DM polyneuropathy, asthma, 3 herniated lumbar discs/cane to ambulate Psychiatric History: Patient's first psychiatric contact was in 2004 after re porting severe depression and auditory/visual hallucinations. Mr. Nunez was treated with remeron and seroquel. Throughout the years he reports a total of eight psychiatric hospitalizations ([facility], [facility], [facility], [facility], [facility]) most recently at [facility] five months ago for depression and auditory hallucinations. Mr. Nunez reports h/o one suicide attempt via overdose in 2011 after hearing command auditory hallucinations to harm himself. Also reports a history of self mutilation by cutting. Mr. Nunez is currently not receiving outpatient psychiatric care. Reports being off medications for two weeks. States issues with his insurance is the reason why he has difficulty with adherence to outpatient care. Patient reported to Dr. Negro that he sees a psychiatrist, monthly, at the [facility] but stated to development writer that he receives his medications from various emergency rooms. Medictions confirmed by Dr. Negro on 04/22/20. Patient is managed on managed on a regimen of depakote 500 mg/bid + cymbalta 30 mg/day + haldol 5 mg/bid + wellbutrin XL 150 mg/daily. Patient denies auditory/ visual hallucination, suicidal/ homicidal ideation. Physical/Sexual Abuse/Trauma History: denies. Mental Status Exam - Mental Status Exam Alert and Oriented to: Time, Place, Person Cognitive Function: Good Patient Appearance: Well Groomed Mood: Withdrawn Affect: Mood Congruent Patient Behavior: Cooperative Speech Pattern: Appropriate Voice Loudness: Normal Thought Process: Goal Oriented Thought Disorder: Not Present Hallucinations: Denies Suicidal Ideation: Denies Homicidal Ideation: Denies Insight/Judgement: Poor Sleep: Fair Appetite: Fair Muscle strength/Tone: Normal Gait/Station: Normal Psychiatric Findings - Problem List ([place] 1, 2,3) (1) Alcohol dependence with uncomplicated withdrawal Current Visit: Yes Status: Acute (2) Cocaine dependence Current Visit: Yes Status: Acute Qualifiers: Substance use status: uncomplicated Qualified Code(s): F14.20 - Cocaine dependence, uncomplicated (3) Nicotine dependence Current Visit: Yes Status: Acute Qualifiers: Nicotine product type: cigarettes (4) Schizoaffective disorder Current Visit: Yes Status: Chronic Qualifiers: Schizoaffective disorder type: depressive Qualified Code(s): F25.1 - Schizoaffective disorder, depressive type - Initial Treatment Plan Initial Treatment Plan: Psychoeducation provided. Detoxification in progress. Medications ordered by Dr. Negro : Cymbalta 30mg daily + Depakote 500mg BID + Haldol 5mg BID. Benefits and side effects discussed. Verbal consent given.
[2020-04-23] MEDS: NICOTINE POLACRILEX 2 MG GUM BUC PRN (10:36)
--- NOTE | 2020-04-23 12:39 | PN ---
S CIWA - CIWA Score Nausea/Vomitin Muscle Tremors: 2 Anxiety: 2 Agitation: 2 Paroxysmal Sweats: No Perspiration Orientation: 0-Oriented Tacttile Disturbances: 1-Very Mild Itch/Numbness Auditory Disturbances: 0-None Visual Disturbances: 0-None Headache: 2-Mild CIWA-Ar Total Score: 11 S Progress Note (SOAP) Subjective: alert,irritable,anxious,interrupted sleep,tremor,aching pain n the body Objective: 04/23/20 12:42 Vital Signs Temperature 97.7 F 04/23/20 08:48 Pulse Rate 95 H 04/23/20 08:48 Respiratory Rate 19 04/23/20 08:48 Blood Pressure 116/58 L 04/23/20 08:48 O2 Sat by Pulse Oximetry (%) 95 04/23/20 08:48 Laboratory Last Values WBC 11.2 K/mm3 (4.0-10.0) H 04/22/20 13:40 RBC 4.42 M/mm3 (4.00-5.60) 04/22/20 13:40 Hgb 13.4 GM/dL (11.7-16.9) 04/22/20 13:40 Hct 41.2 % (35.4-49) 04/22/20 13:40 MCV 93.3 fl (80-96) 04/22/20 13:40 MCH 30.3 pg (25.7-33.7) 04/22/20 13:40 MCHC 32.5 g/dl (32.0-35.9) 04/22/20 13:40 RDW 13.7 % (11.9-15.9) 04/22/20 13:40 Plt Count 346 K/MM3 (134-434) 04/22/20 13:40 MPV 8.2 fl (7.5-11.1) 04/22/20 13:40 Sodium 142 mmol/L (136-145) 04/22/20 13:40 Potassium 4.0 mmol/L (3.5-5.1) 04/22/20 13:40 Chloride 106 mmol/L (98-107) 04/22/20 13:40 Carbon Dioxide 26 mmol/L (21-32) 04/22/20 13:40 Anion Gap 9 MMOL/L (8-16) 04/22/20 13:40 BUN 12.5 mg/dL (7-18) 04/22/20 13:40 Creatinine 0.8 mg/dL (0.55-1.3) 04/22/20 13:40 Est GFR (CKD-EPI)AfAm 123.29 04/22/20 13:40 Est GFR (CKD-EPI)NonAf 106.38 04/22/20 13:40 POC Glucometer 121 UNITS (80-120) 04/23/20 05:34 Random Glucose 160 mg/dL (74-106) H 04/22/20 13:40 Calcium 8.8 mg/dL (8.5-10.1) 04/22/20 13:40 Total Bilirubin 0.5 mg/dL (0.2-1) 04/22/20 13:40 AST 16 U/L (15-37) 04/22/20 13:40 ALT 21 U/L (13-61) 04/22/20 13:40 Alkaline Phosphatase 68 U/L (45-117) 04/22/20 13:40 Total Protein 6.9 g/dl (6.4-8.2) 04/22/20 13:40 Albumin 3.5 g/dl (3.4-5.0) 04/22/20 13:40 Valproic Acid 15.2 ug/mL (50-100) L 04/23/20 07:50 Syphilis Serology Non-reactive (NONREACTIVE) 04/22/20 13:40 Assessment: 04/23/20 12:43 withdrawal symptom Plan: continue detox librium regimen,bgm monitoring,seen by psychiatrist
[2020-04-23] MEDS: LOSARTAN POTASSIUM 25 MG TABLET PO SCH (13:22)
[2020-04-23] MEDS: ATORVASTATIN CA 20 MG TABLET (FP) PO SCH (22:15)
[2020-04-23] MEDS: THIAMINE HCL 100 MG TABLET (FP) PO SCH (22:16)
[2020-04-23] MEDS: MELATONIN 5 MG TABLETS PO SCH (22:16)
[2020-04-24] MEDS: chlordiazePOXIDE HCL 25 MG CAPSULE PO SCH ×4 (05:46→22:29)
[2020-04-24] MEDS: GABAPENTIN 300 MG CAPSULE PO SCH ×3 (05:46→22:29)
[2020-04-24] MEDS: LEVOTHYROXINE NA 25 MCG TABLET (FP) PO SCH (08:11)
[2020-04-24] MEDS: metFORMIN HCL 500 MG TABLET (FP) PO SCH ×2 (08:11→17:31)
[2020-04-24] MEDS: DIVALPROEX SODIUM 500 MG TABLET E.C. PO SCH ×2 (10:55→22:29)
[2020-04-24] MEDS: PRENATAL VITAMINS W/ FOLIC ACID TABLET (FP) PO SCH (10:55)
[2020-04-24] MEDS: HALOPERIDOL 5 MG TABLET PO SCH ×2 (10:55→22:29)
[2020-04-24] MEDS: LOSARTAN POTASSIUM 25 MG TABLET PO SCH (10:55)
[2020-04-24] MEDS: DULoxetine HCL 30 MG CAPSULE.DR PO SCH (10:55)
[2020-04-24] MEDS: NICOTINE POLACRILEX 2 MG GUM BUC PRN (10:59)
--- NOTE | 2020-04-24 12:45 | PN ---
S CIWA - CIWA Score Nausea/Vomitin-Mild Nausea/No Vomiting Muscle Tremors: 2 Anxiety: 2 Agitation: 2 Paroxysmal Sweats: No Perspiration Orientation: 0-Oriented Tacttile Disturbances: 0-None Auditory Disturbances: 0-None Visual Disturbances: 0-None Headache: 1-Very Mild CIWA-Ar Total Score: 8 S Progress Note (SOAP) Subjective: alert,irritable,interrupted sleep,pain in the body Objective: 04/24/20 12:43 Vital Signs Temperature 97.5 F L 04/24/20 08:35 Pulse Rate 95 H 04/24/20 08:35 Respiratory Rate 19 04/24/20 08:35 Blood Pressure 121/72 04/24/20 08:35 O2 Sat by Pulse Oximetry (%) 95 04/24/20 05:27 04/24/20 12:43 Laboratory Last Values WBC 11.2 K/mm3 (4.0-10.0) H 04/22/20 13:40 RBC 4.42 M/mm3 (4.00-5.60) 04/22/20 13:40 Hgb 13.4 GM/dL (11.7-16.9) 04/22/20 13:40 Hct 41.2 % (35.4-49) 04/22/20 13:40 MCV 93.3 fl (80-96) 04/22/20 13:40 MCH 30.3 pg (25.7-33.7) 04/22/20 13:40 MCHC 32.5 g/dl (32.0-35.9) 04/22/20 13:40 RDW 13.7 % (11.9-15.9) 04/22/20 13:40 Plt Count 346 K/MM3 (134-434) 04/22/20 13:40 MPV 8.2 fl (7.5-11.1) 04/22/20 13:40 Sodium 142 mmol/L (136-145) 04/22/20 13:40 Potassium 4.0 mmol/L (3.5-5.1) 04/22/20 13:40 Chloride 106 mmol/L (98-107) 04/22/20 13:40 Carbon Dioxide 26 mmol/L (21-32) 04/22/20 13:40 Anion Gap 9 MMOL/L (8-16) 04/22/20 13:40 BUN 12.5 mg/dL (7-18) 04/22/20 13:40 Creatinine 0.8 mg/dL (0.55-1.3) 04/22/20 13:40 Est GFR (CKD-EPI)AfAm 123.29 04/22/20 13:40 Est GFR (CKD-EPI)NonAf 106.38 04/22/20 13:40 POC Glucometer 111 UNITS (80-120) 04/24/20 05:48 Random Glucose 160 mg/dL (74-106) H 04/22/20 13:40 Calcium 8.8 mg/dL (8.5-10.1) 04/22/20 13:40 Total Bilirubin 0.5 mg/dL (0.2-1) 04/22/20 13:40 AST 16 U/L (15-37) 04/22/20 13:40 ALT 21 U/L (13-61) 04/22/20 13:40 Alkaline Phosphatase 68 U/L (45-117) 04/22/20 13:40 Total Protein 6.9 g/dl (6.4-8.2) 04/22/20 13:40 Albumin 3.5 g/dl (3.4-5.0) 04/22/20 13:40 Valproic Acid 15.2 ug/mL (50-100) L 04/23/20 07:50 Syphilis Serology Non-reactive (NONREACTIVE) 04/22/20 13:40 COVID-19 (ERMA) Not detected (Not Detected) 04/22/20 15:15 Assessment: 04/24/20 12:44 withdrawal symptom Plan: continue detox ,fluid,bgm monitoring,psychiatric consultation,cbc in am
[2020-04-24] MEDS: IBUPROFEN 400 MG TABLET (FP) PO PRN (14:53)
[2020-04-24] MEDS: THIAMINE HCL 100 MG TABLET (FP) PO SCH (22:29)
[2020-04-24] MEDS: ATORVASTATIN CA 20 MG TABLET (FP) PO SCH (22:29)
[2020-04-24] MEDS: MELATONIN 5 MG TABLETS PO SCH (22:37)
[2020-04-25] MEDS ORDERED: chlordiazePOXIDE HCL 10 MG CAPSULE PO PRN
[2020-04-25] MEDS: GABAPENTIN 300 MG CAPSULE PO SCH ×3 (05:49→22:39)
[2020-04-25] MEDS: chlordiazePOXIDE HCL 10 MG CAPSULE PO SCH ×4 (05:50→22:39)
[2020-04-25] MEDS: LEVOTHYROXINE NA 25 MCG TABLET (FP) PO SCH (07:25)
[2020-04-25] MEDS: metFORMIN HCL 500 MG TABLET (FP) PO SCH ×2 (07:25→17:30)
[2020-04-25] MEDS: LOSARTAN POTASSIUM 25 MG TABLET PO SCH (10:05)
[2020-04-25] MEDS: DULoxetine HCL 30 MG CAPSULE.DR PO SCH (10:05)
[2020-04-25] MEDS: DIVALPROEX SODIUM 500 MG TABLET E.C. PO SCH ×2 (10:05→22:39)
[2020-04-25] MEDS: HALOPERIDOL 5 MG TABLET PO SCH ×2 (10:05→22:39)
[2020-04-25] MEDS: PRENATAL VITAMINS W/ FOLIC ACID TABLET (FP) PO SCH (10:06)
[2020-04-25] MEDS: NICOTINE POLACRILEX 2 MG GUM BUC PRN (10:08)
[2020-04-25 10:12] LABS: HEMOGLOBIN 12.9 GM/dL (11.7-16.9); MCH 29.9 pg (25.7-33.7); MCHC 32.3 g/dl (32.0-35.9); MEAN CELL VOLUME 92.3 fl (80-96); MEAN PLT VOLUME 7.9 fl (7.5-11.1); PLATELET COUNT 310 K/MM3 (134-434); RBC 4.33 M/mm3 (4.00-5.60); RDW 13.5 % (11.9-15.9); WHITE BLOOD COUNT 10.8 K/mm3 (4.0-10.0)
--- NOTE | 2020-04-25 10:26 | PN ---
[facility] CIWA - CIWA Score Nausea/Vomitin-Mild Nausea/No Vomiting Muscle Tremors: 2 Anxiety: 2 Agitation: 1-Slight > Activity Paroxysmal Sweats: No Perspiration Orientation: 0-Oriented Tacttile Disturbances: 0-None Auditory Disturbances: 0-None Visual Disturbances: 0-None Headache: 1-Very Mild CIWA-Ar Total Score: 7 S Progress Note (SOAP) Subjective: alert,irritable,anxious,interrupted sleep,body ache Objective: 04/25/20 10:25 Vital Signs Temperature 97.3 F L 04/25/20 05:30 Pulse Rate 86 04/25/20 05:30 Respiratory Rate 16 04/25/20 05:30 Blood Pressure 122/71 04/25/20 05:30 O2 Sat by Pulse Oximetry (%) 95 04/25/20 05:30 04/25/20 10:25 Laboratory Results - last 24 hr 04/24/20 04/25/20 04/25/20 16:42 05:49 08:00 WBC 10.8 H RBC 4.33 Hgb 12.9 Hct 40.0 MCV 92.3 MCH 29.9 MCHC 32.3 RDW 13.5 Plt Count 310 MPV 7.9 POC Glucometer 129 119 Assessment: 04/25/20 10:26 withdrawal symptom Plan: continue detox librium regimen,encourage oral fluid,awaiting for evaluation reevaluation
[2020-04-25] MEDS: IBUPROFEN 400 MG TABLET (FP) PO PRN ×2 (11:45→20:54)
[2020-04-25] MEDS: THIAMINE HCL 100 MG TABLET (FP) PO SCH (22:39)
[2020-04-25] MEDS: ATORVASTATIN CA 20 MG TABLET (FP) PO SCH (22:39)
[2020-04-25] MEDS: MELATONIN 5 MG TABLETS PO SCH (23:21)
[2020-04-26] MEDS ORDERED: chlordiazePOXIDE HCL 10 MG CAPSULE PO SCH (05:00)
[2020-04-26] MEDS: IBUPROFEN 400 MG TABLET (FP) PO PRN (05:16)
[2020-04-26] MEDS: GABAPENTIN 300 MG CAPSULE PO SCH (05:17)
[2020-04-26 06:09] VITALS: BP 106/65; PULSE 85; TEMP 97.3
[2020-04-26] MEDS: metFORMIN HCL 500 MG TABLET (FP) PO SCH (06:59)
[2020-04-26] MEDS: LEVOTHYROXINE NA 25 MCG TABLET (FP) PO SCH (07:00)
[2020-04-26] MEDS ORDERED: LIDOCAINE VISCOUS 2% ORAL/TOP 20 ML UNIT-DOSE CUP MM PRN (09:05)
[2020-04-26] MEDS ORDERED: IBUPROFEN 400 MG TABLET (FP) PO PRN (09:07)
--- NOTE | 2020-04-26 10:17 | PN ---
[facility] Progress Note Note: Patient requested to see process description writer regarding increasing Wellbutrin XL from 150 mg/day to 300 mg/day. He also told process description writer that he was off that medication for 2 weeks prior to admission. Patient educated about how medication works and that he needs to give more time for medication to work after restarting it
[2020-04-26] MEDS: DIVALPROEX SODIUM 500 MG TABLET E.C. PO SCH (10:24)
[2020-04-26] MEDS: PRENATAL VITAMINS W/ FOLIC ACID TABLET (FP) PO SCH (10:24)
[2020-04-26] MEDS: DULoxetine HCL 30 MG CAPSULE.DR PO SCH (10:24)
[2020-04-26] MEDS: LOSARTAN POTASSIUM 25 MG TABLET PO SCH (10:24)
[2020-04-26] MEDS: HALOPERIDOL 5 MG TABLET PO SCH (10:24)
--- NOTE | 2020-04-26 10:47 | PN ---
[facility] CIWA - CIWA Score Nausea/Vomitin-No Nausea/No Vomiting Muscle Tremors: 1-None Visible, but [place] Anxiety: 1-Mildly Anxious Agitation: 0-Normal Activity Paroxysmal Sweats: No Perspiration Orientation: 0-Oriented Tacttile Disturbances: 0-None Auditory Disturbances: 0-None Visual Disturbances: 0-None Headache: 0-None Present CIWA-Ar Total Score: 2 [facility] Progress Note (SOAP) Subjective: alert,no complaint Objective: 04/26/20 10:46 Vital Signs Temperature 97.3 F L 04/26/20 05:09 Pulse Rate 85 04/26/20 05:09 Respiratory Rate 16 04/26/20 05:09 Blood Pressure 106/65 04/26/20 05:09 O2 Sat by Pulse Oximetry (%) 97 04/26/20 05:09 Assessment: 04/26/20 10:46 no withdrawal symptom Plan: stable for discharge today
[2020-04-26] MEDS: NICOTINE POLACRILEX 2 MG GUM BUC PRN (11:21)
--- NOTE | 2020-04-26 12:17 | DS ---
[facility] Detox Discharge Summary Admission Date: 04/22/20 Discharge Date: 04/26/20 - History Present History: Alcohol Dependence, Cocaine Dependence Additional Comments: alert,oriented x 3 ambulation on the unit lung clear on auscultation bilaterally abdomen soft,no distension,no pain,no tenderness no edema of legs no withdrawal symptom patient is stable for discharge today follow up with after care program revelation as arrangement total time discharge spending 35 minutes Pertinent Past History: type 2 dm hypertension neuropathy hyperlipidemia schizoaffective disorder hypothyroidism - Physical Exam Results Vital Signs: Vital Signs Temperature 97.3 F L 04/26/20 05:09 Pulse Rate 85 04/26/20 05:09 Respiratory Rate 16 04/26/20 05:09 Blood Pressure 106/65 04/26/20 05:09 O2 Sat by Pulse Oximetry (%) 97 04/26/20 05:09 Pertinent Admission Physical Exam Findings: withdrawal signs and symptom Laboratory Last Values WBC 10.8 K/mm3 (4.0-10.0) H 04/25/20 08:00 RBC 4.33 M/mm3 (4.00-5.60) 04/25/20 08:00 Hgb 12.9 GM/dL (11.7-16.9) 04/25/20 08:00 Hct 40.0 % (35.4-49) 04/25/20 08:00 MCV 92.3 fl (80-96) 04/25/20 08:00 MCH 29.9 pg (25.7-33.7) 04/25/20 08:00 MCHC 32.3 g/dl (32.0-35.9) 04/25/20 08:00 RDW 13.5 % (11.9-15.9) 04/25/20 08:00 Plt Count 310 K/MM3 (134-434) 04/25/20 08:00 MPV 7.9 fl (7.5-11.1) 04/25/20 08:00 Sodium 142 mmol/L (136-145) 04/22/20 13:40 Potassium 4.0 mmol/L (3.5-5.1) 04/22/20 13:40 Chloride 106 mmol/L (98-107) 04/22/20 13:40 Carbon Dioxide 26 mmol/L (21-32) 04/22/20 13:40 Anion Gap 9 MMOL/L (8-16) 04/22/20 13:40 BUN 12.5 mg/dL (7-18) 04/22/20 13:40 Creatinine 0.8 mg/dL (0.55-1.3) 04/22/20 13:40 Est GFR (CKD-EPI)AfAm 123.29 04/22/20 13:40 Est GFR (CKD-EPI)NonAf 106.38 04/22/20 13:40 POC Glucometer 110 UNITS (80-120) 04/26/20 05:14 Random Glucose 160 mg/dL (74-106) H 04/22/20 13:40 Calcium 8.8 mg/dL (8.5-10.1) 04/22/20 13:40 Total Bilirubin 0.5 mg/dL (0.2-1) 04/22/20 13:40 AST 16 U/L (15-37) 04/22/20 13:40 ALT 21 U/L (13-61) 04/22/20 13:40 Alkaline Phosphatase 68 U/L (45-117) 04/22/20 13:40 Total Protein 6.9 g/dl (6.4-8.2) 04/22/20 13:40 Albumin 3.5 g/dl (3.4-5.0) 04/22/20 13:40 Valproic Acid 15.2 ug/mL (50-100) L 04/23/20 07:50 Syphilis Serology Non-reactive (NONREACTIVE) 04/22/20 13:40 COVID-19 (ERMA) Not detected (Not Detected) 04/22/20 15:15 Vital Signs Temperature 97.3 F L 04/26/20 05:09 Pulse Rate 85 04/26/20 05:09 Respiratory Rate 16 04/26/20 05:09 Blood Pressure 106/65 04/26/20 05:09 O2 Sat by Pulse Oximetry (%) 97 04/26/20 05:09 - Treatment Hospital Course: Detox Protocol Followed, Detoxed Safely, Responded well, Discharged Condition Good, Rehab Referral Accepted Patient has Accepted a Rehab Referral to: [facility] - Medication Discharge Medications: Ambulatory Orders Albuterol Sulfate Inhaler - [Ventolin HFA Inhaler -] 1 - 2 inh PO QID 03/03/19 Atorvastatin Ca [Lipitor] 20 mg PO HS 03/03/19 Bupropion HCl [Wellbutrin Xl] 300 mg PO DAILY 03/03/19 Divalproex [Depakote -] 1,000 mg PO HS 03/03/19 Folic Acid 1 mg PO DAILY 03/03/19 Gabapentin 600 mg PO TID 03/03/19 Haloperidol [Haldol -] 10 mg PO HS 03/03/19 Levothyroxine [Synthroid -] 25 mcg PO DAILY 03/03/19 Losartan Potassium 25 mg PO DAILY 03/03/19 Metformin HCl [Glucophage] 1,000 mg PO BID 03/03/19 Duloxetine HCl [Cymbalta -] 30 mg PO DAILY 04/22/20 - Diagnosis (1) Alcohol dependence with uncomplicated withdrawal Current Visit: Yes Status: Acute (2) Cocaine dependence Current Visit: Yes Status: Acute Qualifiers: Substance use status: uncomplicated Qualified Code(s): F14.20 - Cocaine dependence, uncomplicated (3) Diabetic polyneuropathy Current Visit: Yes Status: Acute Qualifiers: Diabetes mellitus type: type 2 Qualified Code(s): E11.42 - Type 2 diabetes mellitus with diabetic polyneuropathy (4) HTN (hypertension) Current Visit: Yes Status: Acute Qualifiers: Hypertension type: essential hypertension Qualified Code(s): I10 - Essential (primary) hypertension (5) Nicotine dependence Current Visit: Yes Status: Acute Qualifiers: Nicotine product type: cigarettes (6) Asthma Current Visit: Yes Status: Chronic (7) Diabetes type 2, controlled Current Visit: Yes Status: Chronic Qualifiers: Diabetes mellitus complication status: with neurologic complications Diabetes mellitus complication detail: with polyneuropathy (8) Schizoaffective disorder Current Visit: Yes Status: Chronic Qualifiers: Schizoaffective disorder type: depressive Qualified Code(s): F25.1 - Schizoaffective disorder, depressive type (9) Hyperlipidemia Current Visit: No Status: Chronic Qualifiers: Hyperlipidemia type: unspecified Qualified Code(s): E78.5 - Hyperlipidemia, unspecified (10) Hypothyroidism Current Visit: Yes Status: Acute - AMA Did Patient Leave Against Medical Advice: No
[2020-04-26] MEDS ORDERED: ALBUTEROL SO4 HFA INHALER IH PRN (12:29)
[2020-04-27] MEDS ORDERED: chlordiazePOXIDE HCL 10 MG CAPSULE PO ONE (05:00)
== END 2020-04-26 13:00 | disposition other institution (70) | DRG 774 ==
LOC: YASAS 11:31 → Y6N 14:19
PROVIDERS: ADMIT Allergy & Immunology; ATTEND Allergy & Immunology
PROC: HZ2ZZZZ Detoxification Services for Substance Abuse Treatment (ICD-10-PCS; principal; 2020-04-22)
DX: F10.230 Alcohol dependence with withdrawal, uncomplicated (principal); F14.20 Cocaine dependence, uncomplicated; F17.210 Nicotine dependence, cigarettes, uncomplicated; F25.1 Schizoaffective disorder, depressive type; F19.24 Other psychoactive substance dependence with psychoactive substance-induced mood disorder; F31.89 Other bipolar disorder; I10 Essential (primary) hypertension; J45.909 Unspecified asthma, uncomplicated; E03.9 Hypothyroidism, unspecified; E78.5 Hyperlipidemia, unspecified; E11.42 Type 2 diabetes mellitus with diabetic polyneuropathy; M51.26 Other intervertebral disc displacement, lumbar region; Z79.84 Long term (current) use of oral hypoglycemic drugs; E66.01 Morbid (severe) obesity due to excess calories; Z68.41 Body mass index [BMI] 40.0-44.9, adult; Z91.5 Personal history of self-harm; Z98.890 Other specified postprocedural states; Z56.0 Unemployment, unspecified; Z59.0 Homelessness; Z99.89 Dependence on other enabling machines and devices
CPT/HCPCS: 36415; 71045-TC-FY; 80053; 80164; 82962; 85027; 86780; Q0162; U0003

== ENCOUNTER 2020-04-26 12:31 | Inpatient (IN) | payer OTHER ==
[2020-04-26] MEDS ORDERED: MENTHOL/PHENOL 1 EACH UD MM PRN (14:22)
[2020-04-26] MEDS ORDERED: MAGNESIUM CITRATE 300 ML BOTTLE PO PRN (14:22)
[2020-04-26] MEDS ORDERED: IBUPROFEN 400 MG TABLET (FP) PO PRN (14:22)
[2020-04-26] MEDS ORDERED: MAGNESIUM HYDROX 2400MG/30ML ORAL SUSPENSION 30 ML CUP PO PRN (14:22)
[2020-04-26] MEDS ORDERED: LOPERAMIDE HCL 2 MG CAPSULE PO PRN (14:22)
[2020-04-26] MEDS ORDERED: guaiFENesin 200 MG/10 ML 10 ML UNIT-DOSE CUPS PO PRN (14:22)
[2020-04-26] MEDS ORDERED: P-EPHED 60MG/TRIPROLIDI 2.5MG TABLET PO PRN (14:22)
[2020-04-26] MEDS ORDERED: MAG HYDROX/AL HYDROX/SIMETH 30 ML UNIT-DOSE CUP PO PRN (14:22)
--- NOTE | 2020-04-26 14:22 | HP ---
[facility] Rehab Assess/Revision - Admission History Admitted to Rehab from: [facility] Date of Admission to Rehab: 04/26/2020 - Findings Detox History & Physical reviewed: Yes Concur with findings: Yes Inpatient Rehab Admission - Rehab Decision to Admit Inpatient rehab admission?: Yes - Initial Determination Are CD services needed?: Yes Free of communicable disease: Yes Not in need of hospitalization: Yes - Rehab Admission Criteria Previous failed treatment: Yes Poor recovery environment: Yes Comorbidities: Yes Lacks judgement: No Patient is meeting Inpatient Rehab admission criteria:: Yes
[2020-04-26] MEDS ORDERED: ALBUTEROL SO4 HFA INHALER IH PRN (14:23)
--- NOTE | 2020-04-26 15:23 | CONSULT ---
[facility] Psychiatric Consult - Data Date of interview: 04/26/20 Admission source: Transfer from [address] [place] [address]. Identifying data: First admission to [address] for this 49 y/o male enlisting in rehabilitation (completed detoxification at [address] [place] [address]) for maintenance of sobriety + mnagement of co-morbid schizoaffective disorder (bipolar type). SOL issues : alcohol, cocaine, nicotine. Patient is single, father of five, homeless, unemployed and supported on Public Assistance. Substance Abuse History: Discussed with the patient. SOL profile as follows : Alcohol. Substance amount: 4 pints vodka. Frequency of use: Daily. Substance route: Oral. Date of Last Use: 04/21/20. First use age 16 y. No seizures. Blackouts, last was one month ago. 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 Cocaine- Powder. Substance amount: $40. Frequency of use: Daily. Substance route: Inhalation (ex: sniffing or snorting). Date of Last Use: 04/21/20. First use age 28y. Nicotine. Substance amount: 10 ciggs. Frequency of use: Daily. Substance route: Smoking. Date of Last Use: 04/21/20. First use age 16y. History Source: Patient. Limitations to Obtaining History: No Limitations. - Smoking History. Smoking history: Current every day smoker. Have you smoked in the past 12 months: Yes. Aproximately how many cigarettes per day: 10 Medical History: Medical profile is remarkable for obesity (morbid), dyslipidemia, diabetes mellitus, hypwertension, hypothyroidism, diabetic polyneuropathy, bronchial asthma, chronic lumbar pain (three herniated discs). Patient uses a cane for ambulation. Psychiatric History: Patient endorses a history of multiple psychiatric hospitalizations. Firts contact with a psychiatric care provider occurred in 2004 (visual/auditory hallucinations with suicidal commands + depression). Patient is known to [facility], [facility], [facility], [facility] and [facility]. Discharged, five months ago, from [facility] (depression, hallucinations, suicidal ideation). Mr. Nunez reports sporadic adherence to OPD care due, in part, to difficulty of access to care " because of insurance coverage ". It appe ars that the patient had to rely on refills from CPEP + emrgency departments at various facilities. Noted history of self-mutilation and one suicide attempt via overdose (2011) in response to command auditory hallucinations. Prior to this [facility] visit, the patient has been off his psychotropic medications (depakote 500 mg/bid + haldol 10 mg/bid + wellbutrin XL 150 mg/daily + cymbalta 30 mg/day) for two weeks. Physical/Sexual Abuse/Trauma History: Patient denies. Additional Comment: Urine drug screen results: GRICELDA-Cocaine, BZO-Benzodiazepines. Noted. Mental Status Exam - Mental Status Exam Alert and Oriented to: Time, Place, Person Cognitive Function: Good Patient Appearance: Well Groomed (obese) Mood: Withdrawn, Hopeful Affect: Mood Congruent, Constricted Patient Behavior: Fatigued, Appropriate, Cooperative Speech Pattern: Clear, Appropriate Voice Loudness: Normal Thought Process: Intact, Goal Oriented Thought Disorder: Not Present Hallucinations: Denies Suicidal Ideation: Denies Homicidal Ideation: Denies Insight/Judgement: Fair Sleep: Well Appetite: Good Gait/Station: Other (ambulates with a cane) Psychiatric Findings - Problem List ([place] 1, 2,3) (1) Alcohol use disorder Current Visit: Yes Status: Chronic (2) Cocaine dependence Current Visit: Yes Status: Chronic Qualifiers: Substance use status: uncomplicated Qualified Code(s): F14.20 - Cocaine dependence, uncomplicated (3) Nicotine dependence Current Visit: Yes Status: Chronic Qualifiers: Nicotine product type: cigarettes (4) Schizoaffective disorder Current Visit: Yes Status: Chronic Qualifiers: Schizoaffective disorder type: depressive Qualified Code(s): F25.1 - Schizoaffective disorder, depressive type (5) Substance induced mood disorder Current Visit: Yes Status: Chronic (6) Insomnia Current Visit: Yes Status: Chronic - Initial Treatment Plan Initial Treatment Plan: Psychoeducation (about psychotropic medications, benefits of sobriety, importance of MAT services, adherence to OPD care). Support. Sleep hygiene. Motivational counseling. AA meetings. Strict observance of COVID-19 guidelines (hand washing, face mask, social distancing). Patient expresses wish to resume bupropion at 300 mg per day (his former dose, a few months ago). For continuity of care, medications ordered as follows (with the patient's informed consent (verbal) : depakote 500 mg po bid + wellbutrin XL 300 mg po daily + gabapentin 600 mg po bid + duloxetine 30 mg po daily + haldol 5 mg po bid. Side effects/benefits discussed with the patient. He is agreeable with this plan of care. Observation.
[2020-04-26] MEDS ORDERED: HALOPERIDOL 5 MG TABLET PO PRN (15:44)
[2020-04-26] MEDS: IBUPROFEN 400 MG TABLET (FP) PO PRN (16:33)
[2020-04-26] MEDS: metFORMIN HCL 500 MG TABLET (FP) PO SCH (16:37)
[2020-04-26] MEDS: LIDOCAINE PATCH REMOVAL MC SCH (21:11)
[2020-04-26] MEDS: MELATONIN 5 MG TABLETS PO SCH (21:13)
[2020-04-26] MEDS: GABAPENTIN 300 MG CAPSULE PO SCH (21:13)
[2020-04-26] MEDS: DIVALPROEX SODIUM 500 MG TABLET E.C. PO SCH (21:13)
[2020-04-26] MEDS: ATORVASTATIN CA 20 MG TABLET (FP) PO SCH (21:13)
[2020-04-26] MEDS: THIAMINE HCL 100 MG TABLET (FP) PO SCH (21:13)
[2020-04-27] MEDS: LEVOTHYROXINE NA 25 MCG TABLET (FP) PO SCH (06:23)
[2020-04-27] MEDS: metFORMIN HCL 500 MG TABLET (FP) PO SCH ×2 (06:23→17:03)
[2020-04-27] MEDS ORDERED: PT OWN MED DRAWER 7, Y5N ONE (08:20)
[2020-04-27] MEDS: DIVALPROEX SODIUM 500 MG TABLET E.C. PO SCH ×2 (09:16→21:06)
[2020-04-27] MEDS: DULoxetine HCL 30 MG CAPSULE.DR PO SCH (09:16)
[2020-04-27] MEDS: GABAPENTIN 300 MG CAPSULE PO SCH ×2 (09:17→21:06)
[2020-04-27] MEDS: LIDOCAINE 5% TOPICAL PATCH TP SCH (09:17)
[2020-04-27] MEDS: PRENATAL VITAMINS W/ FOLIC ACID TABLET (FP) PO SCH (09:17)
[2020-04-27] MEDS: NICOTINE POLACRILEX 2 MG GUM BUC PRN ×2 (09:19→17:31)
[2020-04-27] MEDS: LOSARTAN POTASSIUM 25 MG TABLET PO SCH (09:35)
[2020-04-27] MEDS ORDERED: NICOTINE 7 MG/24 HOURS TOPICAL PATCH TD SCH (10:00)
[2020-04-27] MEDS: IBUPROFEN 400 MG TABLET (FP) PO PRN (17:30)
[2020-04-27] MEDS: ACETAMINOPHEN 325 MG TABLET (FP) PO PRN (19:18)
[2020-04-27] MEDS: LIDOCAINE PATCH REMOVAL MC SCH (21:05)
[2020-04-27] MEDS: ATORVASTATIN CA 20 MG TABLET (FP) PO SCH (21:06)
[2020-04-27] MEDS: MELATONIN 5 MG TABLETS PO SCH (21:06)
[2020-04-27] MEDS: THIAMINE HCL 100 MG TABLET (FP) PO SCH (21:06)
[2020-04-28] MEDS: LEVOTHYROXINE NA 25 MCG TABLET (FP) PO SCH (06:31)
[2020-04-28] MEDS: metFORMIN HCL 500 MG TABLET (FP) PO SCH ×2 (06:31→16:42)
[2020-04-28] MEDS: IBUPROFEN 400 MG TABLET (FP) PO PRN ×2 (06:31→16:42)
[2020-04-28] MEDS ORDERED: PT OWN MED DRAWER 7, Y5N ONE ×2 (08:26→19:26)
[2020-04-28] MEDS: DIVALPROEX SODIUM 500 MG TABLET E.C. PO SCH ×2 (09:19→21:09)
[2020-04-28] MEDS: PRENATAL VITAMINS W/ FOLIC ACID TABLET (FP) PO SCH (09:19)
[2020-04-28] MEDS: GABAPENTIN 300 MG CAPSULE PO SCH ×2 (09:19→21:09)
[2020-04-28] MEDS: LOSARTAN POTASSIUM 25 MG TABLET PO SCH (09:19)
[2020-04-28] MEDS: DULoxetine HCL 30 MG CAPSULE.DR PO SCH (09:19)
[2020-04-28] MEDS: LIDOCAINE 5% TOPICAL PATCH TP SCH (09:20)
[2020-04-28] MEDS: NICOTINE POLACRILEX 2 MG GUM BUC PRN (09:27)
[2020-04-28] MEDS: ACETAMINOPHEN 325 MG TABLET (FP) PO PRN (21:09)
[2020-04-28] MEDS: THIAMINE HCL 100 MG TABLET (FP) PO SCH (21:09)
[2020-04-28] MEDS: ATORVASTATIN CA 20 MG TABLET (FP) PO SCH (21:09)
[2020-04-28] MEDS: MELATONIN 5 MG TABLETS PO SCH (21:10)
[2020-04-28] MEDS: LIDOCAINE PATCH REMOVAL MC SCH (22:28)
[2020-04-29] MEDS ORDERED: PT OWN MED DRAWER 7, Y5N ONE ×2 (03:44→09:07)
[2020-04-29] MEDS: LEVOTHYROXINE NA 25 MCG TABLET (FP) PO SCH (06:25)
[2020-04-29] MEDS: IBUPROFEN 400 MG TABLET (FP) PO PRN ×2 (06:25→21:14)
[2020-04-29] MEDS: metFORMIN HCL 500 MG TABLET (FP) PO SCH ×2 (06:25→16:47)
[2020-04-29] MEDS: GABAPENTIN 300 MG CAPSULE PO SCH ×2 (09:56→21:13)
[2020-04-29] MEDS: PRENATAL VITAMINS W/ FOLIC ACID TABLET (FP) PO SCH (09:56)
[2020-04-29] MEDS: DULoxetine HCL 30 MG CAPSULE.DR PO SCH (09:56)
[2020-04-29] MEDS: DIVALPROEX SODIUM 500 MG TABLET E.C. PO SCH ×2 (09:56→21:13)
[2020-04-29] MEDS: LOSARTAN POTASSIUM 25 MG TABLET PO SCH (09:57)
[2020-04-29] MEDS: LIDOCAINE 5% TOPICAL PATCH TP SCH (09:58)
[2020-04-29] MEDS: NICOTINE POLACRILEX 2 MG GUM BUC PRN (09:59)
[2020-04-29] MEDS: BENZOCAINE 20 % GEL TUBE MM PRN (12:47)
[2020-04-29] MEDS: THIAMINE HCL 100 MG TABLET (FP) PO SCH (21:12)
[2020-04-29] MEDS: MELATONIN 5 MG TABLETS PO SCH (21:12)
[2020-04-29] MEDS: ATORVASTATIN CA 20 MG TABLET (FP) PO SCH (21:13)
[2020-04-29] MEDS: hydrOXYzine PAMOATE 25 MG CAPSULE (FP) PO PRN (21:13)
[2020-04-29] MEDS: LIDOCAINE PATCH REMOVAL MC SCH (21:15)
[2020-04-30] MEDS: LEVOTHYROXINE NA 25 MCG TABLET (FP) PO SCH (07:06)
[2020-04-30] MEDS: metFORMIN HCL 500 MG TABLET (FP) PO SCH ×2 (07:06→17:03)
[2020-04-30] MEDS ORDERED: PT OWN MED DRAWER 7, Y5N ONE (08:26)
[2020-04-30] MEDS: IBUPROFEN 400 MG TABLET (FP) PO PRN ×2 (08:53→19:46)
[2020-04-30] MEDS: NICOTINE POLACRILEX 2 MG GUM BUC PRN (08:56)
[2020-04-30] MEDS: GABAPENTIN 300 MG CAPSULE PO SCH ×2 (09:11→21:13)
[2020-04-30] MEDS: LOSARTAN POTASSIUM 25 MG TABLET PO SCH (09:12)
[2020-04-30] MEDS: PRENATAL VITAMINS W/ FOLIC ACID TABLET (FP) PO SCH (09:12)
[2020-04-30] MEDS: DIVALPROEX SODIUM 500 MG TABLET E.C. PO SCH ×2 (09:12→21:13)
[2020-04-30] MEDS: DULoxetine HCL 30 MG CAPSULE.DR PO SCH (09:12)
[2020-04-30] MEDS: LIDOCAINE 5% TOPICAL PATCH TP SCH (09:12)
[2020-04-30] MEDS: MELATONIN 5 MG TABLETS PO SCH (21:13)
[2020-04-30] MEDS: ATORVASTATIN CA 20 MG TABLET (FP) PO SCH (21:13)
[2020-04-30] MEDS: hydrOXYzine PAMOATE 25 MG CAPSULE (FP) PO PRN (21:13)
[2020-04-30] MEDS: THIAMINE HCL 100 MG TABLET (FP) PO SCH (21:13)
[2020-04-30] MEDS: LIDOCAINE PATCH REMOVAL MC SCH (21:14)
[2020-04-30] MEDS: BENZOCAINE 20 % GEL TUBE MM PRN (21:14)
[2020-05-01] MEDS ORDERED: PT OWN MED DRAWER 7, Y5N ONE ×2 (06:13→08:48)
[2020-05-01] MEDS: LEVOTHYROXINE NA 25 MCG TABLET (FP) PO SCH (06:39)
[2020-05-01] MEDS: IBUPROFEN 400 MG TABLET (FP) PO PRN ×2 (06:39→17:47)
[2020-05-01] MEDS: metFORMIN HCL 500 MG TABLET (FP) PO SCH ×2 (06:40→17:08)
[2020-05-01] MEDS: ACETAMINOPHEN 325 MG TABLET (FP) PO PRN (08:35)
[2020-05-01] MEDS: LIDOCAINE 5% TOPICAL PATCH TP SCH (09:12)
[2020-05-01] MEDS: DULoxetine HCL 30 MG CAPSULE.DR PO SCH (09:12)
[2020-05-01] MEDS: PRENATAL VITAMINS W/ FOLIC ACID TABLET (FP) PO SCH (09:12)
[2020-05-01] MEDS: DIVALPROEX SODIUM 500 MG TABLET E.C. PO SCH ×2 (09:13→21:33)
[2020-05-01] MEDS: LOSARTAN POTASSIUM 25 MG TABLET PO SCH (09:13)
[2020-05-01] MEDS: GABAPENTIN 300 MG CAPSULE PO SCH ×2 (09:13→21:33)
[2020-05-01] MEDS: NICOTINE POLACRILEX 2 MG GUM BUC PRN (09:16)
--- NOTE | 2020-05-01 15:42 | CONSULT ---
[facility] Psychiatric Consult - Data Date of interview: 05/01/20 Psychiatric Findings - Problem List ([place] 1, 2,3) (1) Alcohol use disorder Current Visit: Yes Status: Chronic (2) Cocaine dependence Current Visit: Yes Status: Chronic Qualifiers: Substance use status: uncomplicated Qualified Code(s): F14.20 - Cocaine dependence, uncomplicated (3) Nicotine dependence Current Visit: Yes Status: Chronic Qualifiers: Nicotine product type: cigarettes (4) Schizoaffective disorder Current Visit: Yes Status: Chronic Qualifiers: Schizoaffective disorder type: depressive Qualified Code(s): F25.1 - Schizoaffective disorder, depressive type (5) Substance induced mood disorder Current Visit: Yes Status: Chronic (6) Insomnia Current Visit: Yes Status: Chronic
--- NOTE | 2020-05-01 15:43 | PN ---
Psychiatric Progress Note Vital Signs: Vital Signs Period Temp Pulse Resp BP Sys/Saravia Pulse Ox Last 24 Hr 97.4 F 98-103 18 113-146/76-85 97-98 Date of Session: 05/01/20 Chief Complaint:: " I want my dose of wellbutrin raised to 450 mg." HPI: Called to evaluate this patient who is requesting 450 mg of wellbutrin instead of his current 300 mg/day. No other issue offered. ROS: Patient is alert and fully oriented. Cooperative in this interview. Ambulatory (uses a cane). Current Medications: Active Medications Generic Name Dose Route Start Last Admin Trade Name Freq PRN Reason Stop Dose Admin Acetaminophen 650 mg 04/26/20 14:22 05/01/20 08:35 Tylenol - PO 650 mg Q4H PRN Administration FEVER Al Hydroxide/Mg Hydroxide 30 ml 04/26/20 14:22 Mylanta Oral Suspension - PO Q6H PRN DYSPEPSIA Albuterol Sulfate 2 puff 04/26/20 14:23 Ventolin Hfa Inhaler - IH Q4H PRN SHORT OF BREATH/WHEEZING Atorvastatin Calcium 20 mg 04/26/20 22:00 04/30/20 21:13 Lipitor - PO 20 mg HS SENDY Administration Benzocaine 1 applic 04/28/20 22:31 04/30/20 21:14 Anbesol - MM 1 applic Q6H PRN Administration FOR TOOTHACHE Bupropion HCl 300 mg 04/27/20 10:00 05/01/20 09:13 Wellbutrin Xl - PO 300 mg DAILY SENDY Administration Divalproex Sodium 500 mg 04/26/20 22:00 05/01/20 09:13 Depakote - PO 500 mg BID SENDY Administration Duloxetine HCl 30 mg 04/27/20 10:00 05/01/20 09:12 Cymbalta - PO 30 mg DAILY SENDY Administration Eucalyptus/Menthol/Phenol/Sorbitol 1 each 04/26/20 14:22 Cepastat Lozenge - MM Q4H PRN SORE THROAT Gabapentin 600 mg 04/26/20 22:00 05/01/20 09:13 Neurontin - PO 600 mg BID SENDY Administration Guaifenesin 10 ml 04/26/20 14:22 Robitussin - PO Q6H PRN COUGH Haloperidol 5 mg 04/26/20 15:44 05/01/20 13:47 Haldol - PO 5 mg BID PRN Administration AGITATION Hydroxyzine Pamoate 25 mg 04/26/20 14:22 04/30/20 21:13 Vistaril - PO 25 mg Q4HWA PRN Administration ANXIETY Ibuprofen 800 mg 04/26/20 14:26 05/01/20 06:39 Motrin - PO 800 mg Q8H PRN Administration Pain Level 4-6 Levothyroxine Sodium 25 mcg 04/27/20 07:00 05/01/20 06:39 Synthroid - PO 25 mcg DAILY@0700 SENDY Administration Lidocaine 1 patch 04/27/20 10:00 05/01/20 09:12 Lidoderm Patch - TP 1 patch DAILY SENDY Administration Loperamide HCl 4 mg 04/26/20 14:22 Imodium - PO Q6H PRN DIARRHEA Losartan Potassium 25 mg 04/27/20 10:00 05/01/20 09:13 Cozaar - PO 25 mg DAILY SENDY Administration Magnesium Citrate 300 ml 04/26/20 14:22 Citroma - PO Q48H PRN CONSTIPATION Magnesium Hydroxide 30 ml 04/26/20 14:22 Milk Of Magnesia - PO DAILY PRN CONSTIPATION Melatonin 5 mg 04/26/20 22:00 04/30/20 21:13 Melatonin PO 5 mg HS SENDY Administration Metformin HCl 500 mg 04/26/20 16:30 05/01/20 06:40 Glucophage - PO 500 mg BID@0700,1630 SENDY Administration Miscellaneous 1 each 04/26/20 22:00 04/30/20 21:14 Lidoderm Patch Removal MC 1 each DAILY@2200 SENDY Administration Nicotine Polacrilex 2 mg 04/26/20 14:22 05/01/20 09:16 Nicorette Gum - BUC 2 mg Q2H PRN Administration NICOTINE REPLACEMENT RX Multivit/Folic Acid/Iron 1 tab 04/27/20 10:00 05/01/20 09:12 Vitamins (Sjr) - PO 1 tab DAILY SENDY Administration Pseudoephedrine/Triprolidine 1 combo 04/26/20 14:22 Actifed - PO TID PRN NASAL CONGESTION Thiamine HCl 100 mg 04/26/20 22:00 04/30/20 21:13 Vitamin B1 - PO 100 mg HS SENDY Administration Medication(s) Change(s): No changes. Medications discussed with the patient. Mr Nunez is informed that his dose of wellbutrin has been titrated three days ago (up to 300 mg/day). Advised to be patient and informed that aggressive titration may expose to adverse effects. Patient expresses his understanding and he agrees with MD. Prn order for haldol is changed to : haldol 5 mg po bid (no reason for prophylactic utilization of cogentin; patient had clearly informed this medical writer that his psychiatrist had discontinued that medication; besides, the patient, himself, insists on staying of haldol alone). Current Side Effect: No Lab tests ordered: No Lab tests reviewed: Yes Provider note:: Chart reviewed. Met with the patient. Mr Nunez is preoccupied with being on 450 mg of wellbutrin. It is explained to the patient that wellbutrin requires careful and slow titration, over days, in order to avoid occurrence of seizures. See my note of 04/22/20 : this patient has been off that medication for more than two weeks prior to his [facility] visit; he is chronically non-adherent to medications in the community. Medications have been resumed for past nine days (the duration of his stay at [facility]). Mr Nunez is counseled to be patient. He is noted as receptive to teaching. Patient is not psychotic. He has consistently denied suicidal or homicidal ideation, intent or plan. Mental status is stable. Refer to MSE report for details. Close observation. Total face to face time:: 35 Mental Status Exam - Mental Status Exam Alert and Oriented to: Time, Place, Person Cognitive Function: Good Patient Appearance: Disheveled Mood: Withdrawn Affect: Mood Congruent, Constricted Patient Behavior: Appropriate, Cooperative Speech Pattern: Clear, Appropriate Voice Loudness: Normal Thought Process: Intact, Goal Oriented Thought Disorder: Not Present Hallucinations: Denies Suicidal Ideation: Denies Homicidal Ideation: Denies Insight/Judgement: Poor Sleep: Fair Appetite: Good Gait/Station: Other (walks with a cane) Psychiatric Treatment Plan - Problem List (1) Alcohol use disorder Current Visit: Yes Comment: . (2) Cocaine dependence Current Visit: Yes Qualifiers: Substance use status: uncomplicated Qualified Code(s): F14.20 - Cocaine dependence, uncomplicated Comment: . (3) Nicotine dependence Current Visit: Yes Qualifiers: Nicotine product type: cigarettes Comment: . (4) Schizoaffective disorder Current Visit: Yes Qualifiers: Schizoaffective disorder type: depressive Qualified Code(s): F25.1 - Schizoaffective disorder, depressive type (5) Substance induced mood disorder Current Visit: Yes Comment: . (6) Insomnia Current Visit: Yes
[2020-05-01] MEDS: hydrOXYzine PAMOATE 25 MG CAPSULE (FP) PO PRN (21:33)
[2020-05-01] MEDS: ATORVASTATIN CA 20 MG TABLET (FP) PO SCH (21:33)
[2020-05-01] MEDS: THIAMINE HCL 100 MG TABLET (FP) PO SCH (21:33)
[2020-05-01] MEDS: MELATONIN 5 MG TABLETS PO SCH (21:33)
[2020-05-01] MEDS: LIDOCAINE PATCH REMOVAL MC SCH (21:34)
[2020-05-01] MEDS: HALOPERIDOL 5 MG TABLET PO SCH (21:35)
[2020-05-02] MEDS: LEVOTHYROXINE NA 25 MCG TABLET (FP) PO SCH (06:16)
[2020-05-02] MEDS: metFORMIN HCL 500 MG TABLET (FP) PO SCH ×2 (06:16→16:45)
[2020-05-02] MEDS ORDERED: PT OWN MED DRAWER 7, Y5N ONE ×2 (06:16→08:49)
[2020-05-02] MEDS: LIDOCAINE 5% TOPICAL PATCH TP SCH (09:19)
[2020-05-02] MEDS: DIVALPROEX SODIUM 500 MG TABLET E.C. PO SCH ×2 (09:19→21:21)
[2020-05-02] MEDS: GABAPENTIN 300 MG CAPSULE PO SCH ×2 (09:20→21:21)
[2020-05-02] MEDS: DULoxetine HCL 30 MG CAPSULE.DR PO SCH (09:20)
[2020-05-02] MEDS: HALOPERIDOL 5 MG TABLET PO SCH ×2 (09:21→21:22)
[2020-05-02] MEDS: PRENATAL VITAMINS W/ FOLIC ACID TABLET (FP) PO SCH (09:21)
[2020-05-02] MEDS: NICOTINE POLACRILEX 2 MG GUM BUC PRN (09:23)
[2020-05-02] MEDS: LOSARTAN POTASSIUM 25 MG TABLET PO SCH (10:55)
[2020-05-02] MEDS: IBUPROFEN 400 MG TABLET (FP) PO PRN ×2 (11:42→21:22)
[2020-05-02] MEDS: hydrOXYzine PAMOATE 25 MG CAPSULE (FP) PO PRN (21:21)
[2020-05-02] MEDS: MELATONIN 5 MG TABLETS PO SCH (21:21)
[2020-05-02] MEDS: THIAMINE HCL 100 MG TABLET (FP) PO SCH (21:21)
[2020-05-02] MEDS: ATORVASTATIN CA 20 MG TABLET (FP) PO SCH (21:21)
[2020-05-02] MEDS: LIDOCAINE PATCH REMOVAL MC SCH (21:22)
[2020-05-03] MEDS: metFORMIN HCL 500 MG TABLET (FP) PO SCH ×2 (06:17→17:05)
[2020-05-03] MEDS: LEVOTHYROXINE NA 25 MCG TABLET (FP) PO SCH (06:17)
[2020-05-03] MEDS ORDERED: PT OWN MED DRAWER 7, Y5N ONE ×3 (08:21→20:05)
[2020-05-03] MEDS: IBUPROFEN 400 MG TABLET (FP) PO PRN ×2 (08:38→21:46)
[2020-05-03] MEDS: DULoxetine HCL 30 MG CAPSULE.DR PO SCH (08:59)
[2020-05-03] MEDS: LOSARTAN POTASSIUM 25 MG TABLET PO SCH (09:00)
[2020-05-03] MEDS: GABAPENTIN 300 MG CAPSULE PO SCH ×2 (09:00→21:45)
[2020-05-03] MEDS: DIVALPROEX SODIUM 500 MG TABLET E.C. PO SCH ×2 (09:00→21:46)
[2020-05-03] MEDS: HALOPERIDOL 5 MG TABLET PO SCH ×2 (09:01→21:46)
[2020-05-03] MEDS: PRENATAL VITAMINS W/ FOLIC ACID TABLET (FP) PO SCH (09:01)
[2020-05-03] MEDS: LIDOCAINE 5% TOPICAL PATCH TP SCH (09:01)
[2020-05-03] MEDS: NICOTINE POLACRILEX 2 MG GUM BUC PRN (09:13)
[2020-05-03] MEDS: BENZOCAINE 20 % GEL TUBE MM PRN (17:56)
[2020-05-03] MEDS: ACETAMINOPHEN 325 MG TABLET (FP) PO PRN (18:51)
[2020-05-03] MEDS: MELATONIN 5 MG TABLETS PO SCH (21:45)
[2020-05-03] MEDS: THIAMINE HCL 100 MG TABLET (FP) PO SCH (21:45)
[2020-05-03] MEDS: ATORVASTATIN CA 20 MG TABLET (FP) PO SCH (21:46)
[2020-05-03] MEDS: LIDOCAINE PATCH REMOVAL MC SCH (22:05)
[2020-05-04] MEDS ORDERED: PT OWN MED DRAWER 7, Y5N ONE ×2 (06:02→12:46)
[2020-05-04] MEDS: IBUPROFEN 400 MG TABLET (FP) PO PRN ×2 (06:23→19:09)
[2020-05-04] MEDS: LEVOTHYROXINE NA 25 MCG TABLET (FP) PO SCH (06:23)
[2020-05-04] MEDS: metFORMIN HCL 500 MG TABLET (FP) PO SCH ×2 (06:23→16:33)
[2020-05-04] MEDS: LIDOCAINE 5% TOPICAL PATCH TP SCH (09:01)
[2020-05-04] MEDS: GABAPENTIN 300 MG CAPSULE PO SCH ×2 (09:40→21:19)
[2020-05-04] MEDS: DIVALPROEX SODIUM 500 MG TABLET E.C. PO SCH ×2 (09:40→21:19)
[2020-05-04] MEDS: LOSARTAN POTASSIUM 25 MG TABLET PO SCH (09:41)
[2020-05-04] MEDS: PRENATAL VITAMINS W/ FOLIC ACID TABLET (FP) PO SCH (09:41)
[2020-05-04] MEDS: HALOPERIDOL 5 MG TABLET PO SCH ×2 (09:41→21:20)
[2020-05-04] MEDS: DULoxetine HCL 30 MG CAPSULE.DR PO SCH (09:41)
--- NOTE | 2020-05-04 10:31 | PN ---
[facility] Progress Note Note: patient would like to see psychiatrist for medicationd reevaluation
[2020-05-04] MEDS: BENZOCAINE 20 % GEL TUBE MM PRN (12:41)
--- NOTE | 2020-05-04 16:40 | PN ---
[facility] Progress Note Note: Psychiatry Attending's note (follow-up) : Met with the patient. To revisit issue of medications. Mr Nunez insists on getting 450 mg of Wellbutrin XL. " That is the dose I was on at [facility]." Patient reports recent admission there, about three months ago. He continues to endorse dysphoria, depressed mood and anhedonia. Complains that the current dose of wellbutrin 300 mg is not effective. Risk of seizures is, again, explained to the patient. Consent granted. For titration of wellbutrin XL 450 mg po daily. Will follow response. Patient is noted as ambulatory, mildly anxious and cognitively intact. No suicidal or homicidal ideation elicited. No delusions endorsed by patient. Psychiatry-Liaison will continue follow-up as indicated.
[2020-05-04] MEDS: ACETAMINOPHEN 325 MG TABLET (FP) PO PRN (17:50)
[2020-05-04] MEDS: THIAMINE HCL 100 MG TABLET (FP) PO SCH (21:18)
[2020-05-04] MEDS: MELATONIN 5 MG TABLETS PO SCH (21:18)
[2020-05-04] MEDS: hydrOXYzine PAMOATE 25 MG CAPSULE (FP) PO PRN (21:19)
[2020-05-04] MEDS: ATORVASTATIN CA 20 MG TABLET (FP) PO SCH (21:19)
[2020-05-04] MEDS: LIDOCAINE PATCH REMOVAL MC SCH (21:20)
[2020-05-05] MEDS ORDERED: PT OWN MED DRAWER 7, Y5N ONE ×3 (06:20→10:06)
[2020-05-05] MEDS: LEVOTHYROXINE NA 25 MCG TABLET (FP) PO SCH (06:23)
[2020-05-05] MEDS: metFORMIN HCL 500 MG TABLET (FP) PO SCH ×2 (06:24→16:56)
[2020-05-05] MEDS: IBUPROFEN 400 MG TABLET (FP) PO PRN ×3 (06:24→21:29)
[2020-05-05] MEDS: PRENATAL VITAMINS W/ FOLIC ACID TABLET (FP) PO SCH (09:28)
[2020-05-05] MEDS: LIDOCAINE 5% TOPICAL PATCH TP SCH (09:28)
[2020-05-05] MEDS: GABAPENTIN 300 MG CAPSULE PO SCH ×2 (09:29→21:29)
[2020-05-05] MEDS: DIVALPROEX SODIUM 500 MG TABLET E.C. PO SCH ×2 (09:29→21:31)
[2020-05-05] MEDS: DULoxetine HCL 30 MG CAPSULE.DR PO SCH (09:29)
[2020-05-05] MEDS: LOSARTAN POTASSIUM 25 MG TABLET PO SCH (09:29)
[2020-05-05] MEDS: HALOPERIDOL 5 MG TABLET PO SCH ×2 (09:30→21:31)
[2020-05-05] MEDS: NICOTINE POLACRILEX 2 MG GUM BUC PRN (10:05)
[2020-05-05] MEDS: MELATONIN 5 MG TABLETS PO SCH (21:29)
[2020-05-05] MEDS: ATORVASTATIN CA 20 MG TABLET (FP) PO SCH (21:29)
[2020-05-05] MEDS: hydrOXYzine PAMOATE 25 MG CAPSULE (FP) PO PRN (21:29)
[2020-05-05] MEDS: THIAMINE HCL 100 MG TABLET (FP) PO SCH (21:29)
[2020-05-05] MEDS: LIDOCAINE PATCH REMOVAL MC SCH (21:31)
[2020-05-06] MEDS: metFORMIN HCL 500 MG TABLET (FP) PO SCH ×2 (06:18→16:58)
[2020-05-06] MEDS: LEVOTHYROXINE NA 25 MCG TABLET (FP) PO SCH (06:18)
[2020-05-06] MEDS: IBUPROFEN 400 MG TABLET (FP) PO PRN ×2 (06:18→21:17)
[2020-05-06] MEDS: PRENATAL VITAMINS W/ FOLIC ACID TABLET (FP) PO SCH (09:02)
[2020-05-06] MEDS: LIDOCAINE 5% TOPICAL PATCH TP SCH (09:02)
[2020-05-06] MEDS: GABAPENTIN 300 MG CAPSULE PO SCH ×2 (09:02→21:18)
[2020-05-06] MEDS: HALOPERIDOL 5 MG TABLET PO SCH ×2 (09:02→21:19)
[2020-05-06] MEDS: DULoxetine HCL 30 MG CAPSULE.DR PO SCH (09:03)
[2020-05-06] MEDS: LOSARTAN POTASSIUM 25 MG TABLET PO SCH (09:03)
[2020-05-06] MEDS: NICOTINE POLACRILEX 2 MG GUM BUC PRN (09:05)
[2020-05-06] MEDS: DIVALPROEX SODIUM 500 MG TABLET E.C. PO SCH ×2 (10:01→21:18)
[2020-05-06] MEDS: MELATONIN 5 MG TABLETS PO SCH (21:17)
[2020-05-06] MEDS: ATORVASTATIN CA 20 MG TABLET (FP) PO SCH (21:17)
[2020-05-06] MEDS: THIAMINE HCL 100 MG TABLET (FP) PO SCH (21:18)
[2020-05-06] MEDS: hydrOXYzine PAMOATE 25 MG CAPSULE (FP) PO PRN (21:18)
[2020-05-06] MEDS: LIDOCAINE PATCH REMOVAL MC SCH (21:19)
[2020-05-06] MEDS ORDERED: PT OWN MED DRAWER 7, Y5N ONE (23:09)
[2020-05-07] MEDS: metFORMIN HCL 500 MG TABLET (FP) PO SCH ×2 (06:13→16:54)
[2020-05-07] MEDS ORDERED: PT OWN MED DRAWER 7, Y5N ONE ×4 (06:13→14:43)
[2020-05-07] MEDS: LEVOTHYROXINE NA 25 MCG TABLET (FP) PO SCH (06:13)
[2020-05-07] MEDS: IBUPROFEN 400 MG TABLET (FP) PO PRN ×3 (06:14→23:32)
[2020-05-07] MEDS: PRENATAL VITAMINS W/ FOLIC ACID TABLET (FP) PO SCH (09:02)
[2020-05-07] MEDS: HALOPERIDOL 5 MG TABLET PO SCH ×2 (09:02→21:52)
[2020-05-07] MEDS: DULoxetine HCL 30 MG CAPSULE.DR PO SCH (09:02)
[2020-05-07] MEDS: GABAPENTIN 300 MG CAPSULE PO SCH ×2 (09:02→21:53)
[2020-05-07] MEDS: LOSARTAN POTASSIUM 25 MG TABLET PO SCH (09:03)
[2020-05-07] MEDS: DIVALPROEX SODIUM 500 MG TABLET E.C. PO SCH ×2 (09:03→21:51)
[2020-05-07] MEDS: LIDOCAINE 5% TOPICAL PATCH TP SCH (09:03)
[2020-05-07] MEDS: NICOTINE POLACRILEX 2 MG GUM BUC PRN (10:23)
[2020-05-07] MEDS: ATORVASTATIN CA 20 MG TABLET (FP) PO SCH (21:52)
[2020-05-07] MEDS: MELATONIN 5 MG TABLETS PO SCH (21:52)
[2020-05-07] MEDS: LIDOCAINE PATCH REMOVAL MC SCH (21:52)
[2020-05-07] MEDS: hydrOXYzine PAMOATE 25 MG CAPSULE (FP) PO PRN (21:53)
[2020-05-07] MEDS: THIAMINE HCL 100 MG TABLET (FP) PO SCH (21:53)
[2020-05-08] MEDS: LEVOTHYROXINE NA 25 MCG TABLET (FP) PO SCH (06:03)
[2020-05-08] MEDS: metFORMIN HCL 500 MG TABLET (FP) PO SCH ×2 (06:03→16:49)
[2020-05-08] MEDS: IBUPROFEN 400 MG TABLET (FP) PO PRN ×3 (06:04→21:39)
[2020-05-08] MEDS ORDERED: PT OWN MED DRAWER 7, Y5N ONE (08:59)
[2020-05-08] MEDS: LIDOCAINE 5% TOPICAL PATCH TP SCH (09:49)
[2020-05-08] MEDS: PRENATAL VITAMINS W/ FOLIC ACID TABLET (FP) PO SCH (09:49)
[2020-05-08] MEDS: HALOPERIDOL 5 MG TABLET PO SCH ×2 (09:50→21:40)
[2020-05-08] MEDS: DIVALPROEX SODIUM 500 MG TABLET E.C. PO SCH ×2 (09:50→21:38)
[2020-05-08] MEDS: GABAPENTIN 300 MG CAPSULE PO SCH ×2 (09:50→21:38)
[2020-05-08] MEDS: LOSARTAN POTASSIUM 25 MG TABLET PO SCH (09:51)
[2020-05-08] MEDS: DULoxetine HCL 30 MG CAPSULE.DR PO SCH (09:51)
--- NOTE | 2020-05-08 15:01 | PN ---
[facility] Progress Note Note: Psychiatric nurse practitioner note: Patient scheduled for discharge tomorrow (05/09/20). A 30 day prescription of Wellbutrin 450mg XL + Depakote 500mg BID + Gabapentin 600mg BID + Cymbalta 30mg daily + Haldol 5mg BID was electronically sent to [facility], [address] [place], [place] [id number].
[2020-05-08] MEDS: THIAMINE HCL 100 MG TABLET (FP) PO SCH (21:38)
[2020-05-08] MEDS: ATORVASTATIN CA 20 MG TABLET (FP) PO SCH (21:38)
[2020-05-08] MEDS: hydrOXYzine PAMOATE 25 MG CAPSULE (FP) PO PRN (21:38)
[2020-05-08] MEDS: MELATONIN 5 MG TABLETS PO SCH (21:39)
[2020-05-08] MEDS: LIDOCAINE PATCH REMOVAL MC SCH (21:40)
[2020-05-09] MEDS: metFORMIN HCL 500 MG TABLET (FP) PO SCH (06:19)
[2020-05-09] MEDS: LEVOTHYROXINE NA 25 MCG TABLET (FP) PO SCH (06:19)
[2020-05-09] MEDS: IBUPROFEN 400 MG TABLET (FP) PO PRN (06:19)
[2020-05-09 07:07] VITALS: BP 144/90; PULSE 88; TEMP 97.8
[2020-05-09] MEDS: GABAPENTIN 300 MG CAPSULE PO SCH (09:01)
[2020-05-09] MEDS: DIVALPROEX SODIUM 500 MG TABLET E.C. PO SCH (09:01)
[2020-05-09] MEDS: LIDOCAINE 5% TOPICAL PATCH TP SCH (09:01)
[2020-05-09] MEDS: PRENATAL VITAMINS W/ FOLIC ACID TABLET (FP) PO SCH (09:02)
[2020-05-09] MEDS: LOSARTAN POTASSIUM 25 MG TABLET PO SCH (09:03)
[2020-05-09] MEDS: DULoxetine HCL 30 MG CAPSULE.DR PO SCH (09:03)
[2020-05-09] MEDS ORDERED: PT OWN MED DRAWER 7, Y5N ONE (09:03)
[2020-05-09] MEDS: NICOTINE POLACRILEX 2 MG GUM BUC PRN (09:04)
[2020-05-09] MEDS: HALOPERIDOL 5 MG TABLET PO SCH (09:07)
--- NOTE | 2020-05-09 09:24 | DS ---
[facility] Rehab Discharge Summary - [facility] Rehab Discharge Summary Admission Date: 04/26/20 Discharge Date: 05/09/20 - History Present History: Alcohol dependence, Cocaine dependence Pertinent Past History: He was last here in 2019 and completed detox. He was at [facility] with suicidal ideation prior to admission. He stated he has been depressed and thought of hanging himself. Review of [facility] record: Diagnosis: alcohol use disorder, moderate, cocaine use disorder. Pt states he was treated with Librium at [facility]. Additionally, he states he was seen by Psychiatry, not medicated. PMH: HLD, DM, HTN, hypothyroidism, DM polyneuropathy, asthma, 3 herniated lumbar discs/cane to ambulate PSH: none Psych: Bipolar: Depakote, Wellbutrin, Haldol, Cymbalta, no meds in 2 weeks/ran out. Suicide attempt in 2002: OD on opiates SoC: homeless, [facility] in [facility] in [place] - Discharge Physical Exam Vital Signs: Vital Signs Temperature 97.8 F 05/09/20 07:06 Pulse Rate 88 05/09/20 07:06 Respiratory Rate 20 05/09/20 07:06 Blood Pressure 144/90 05/09/20 07:06 O2 Sat by Pulse Oximetry (%) 96 05/09/20 07:06 Pertinent Admission Physical Exam Findings: hysical General Appearance: No Apparent Distress HEENTM: EOMI, Normocephalic, Respiratory: No Accessory Muscle Use Neck: Supple Abdominal: +Bowel Sounds, Protuberent Musculoskeletal: Gait Steady with the use of a cane Neurological: CN 2-12 intact, no cognitive deficits noted - Treatment Discharge Condition: Outpatient referral accepted (Patient will go to the [facility]. Medically stable for discharge.) Hospital Course: Patient attended groups, had 1:1 with his provider, and was seen by the psychiatric service. He was adherent to his medication regimen and his treatment plan. He had no acute or urgent medical problems while in rehab. - Medication Discharge Medications: Ambulatory Orders Bupropion HCl [Wellbutrin Xl] 300 mg PO DAILY 03/03/19 Divalproex [Depakote -] 1,000 mg PO HS 03/03/19 Folic Acid 1 mg PO DAILY 03/03/19 Haloperidol [Haldol -] 10 mg PO HS 03/03/19 Metformin HCl [Glucophage] 1,000 mg PO BID 03/03/19 Duloxetine HCl [Cymbalta -] 30 mg PO DAILY 04/22/20 Albuterol Sulfate Inhaler - [Ventolin HFA Inhaler -] 2 puff IH Q4H PRN inhaler 04/26/20 Bupropion HCl [Wellbutrin Xl -] 150 mg PO DAILY tab.sr.24h 04/26/20 Divalproex [Depakote -] 500 mg PO BID tablet.ec 04/26/20 Haloperidol [Haldol -] 5 mg PO BID tablet 04/26/20 Bupropion HCl [Wellbutrin Xl -] 450 mg PO DAILY #90 tab.sr.24h 05/08/20 Divalproex [Depakote -] 500 mg PO BID #60 tablet.ec 05/08/20 Duloxetine HCl [Cymbalta -] 30 mg PO DAILY #30 capsule. 05/08/20 Gabapentin 600 mg PO BID #60 tablet 05/08/20 Haloperidol [Haldol -] 5 mg PO BID #60 tablet 05/08/20 Albuterol Sulfate Inhaler - [Ventolin HFA Inhaler -] 2 inh PO QID 30 Days #1 inhaler 05/09/20 Atorvastatin Ca [Lipitor] 20 mg PO HS #10 tablet 05/09/20 Gabapentin 600 mg PO TID #30 tablet 05/09/20 Levothyroxine [Synthroid -] 25 mcg PO DAILY #10 tablet 05/09/20 Losartan Potassium 25 mg PO DAILY #10 tablet 05/09/20 metFORMIN HCL [Glucophage -] 500 mg PO BID@0700,1630 #20 tablet 05/09/20 - Medication-Assisted Treatment (MAT) Medication-Assisted Treatment (MAT): No - Discharge Instructions Diet, activity, other medical instructions: Diet: as tolerated Activity: as tolerated Other medical instructions: Please follow up with aftercare referral. - Diagnosis (1) Alcohol use disorder Current Visit: Yes Status: Chronic (2) Cocaine dependence Current Visit: Yes Status: Chronic Qualifiers: Substance use status: uncomplicated Qualified Code(s): F14.20 - Cocaine dependence, uncomplicated - Follow-up Referral Minutes to complete discharge: 15 - AMA Did Patient Leave Against Medical Advice: No
== END 2020-05-09 09:35 | disposition home or self-care (01) | DRG 772 ==
LOC: YASAS 12:31 → Y3E 12:32
PROVIDERS: ADMIT Allergy & Immunology; ATTEND Allergy & Immunology
PROC: HZ42ZZZ Group Counseling for Substance Abuse Treatment, Cognitive-Behavioral (ICD-10-PCS; principal; 2020-04-26)
DX: F10.230 Alcohol dependence with withdrawal, uncomplicated (principal); F14.20 Cocaine dependence, uncomplicated; F17.210 Nicotine dependence, cigarettes, uncomplicated; F25.1 Schizoaffective disorder, depressive type; F19.24 Other psychoactive substance dependence with psychoactive substance-induced mood disorder; I10 Essential (primary) hypertension; E78.5 Hyperlipidemia, unspecified; E11.42 Type 2 diabetes mellitus with diabetic polyneuropathy; E03.9 Hypothyroidism, unspecified; J45.909 Unspecified asthma, uncomplicated; M51.26 Other intervertebral disc displacement, lumbar region; E66.01 Morbid (severe) obesity due to excess calories; Z68.41 Body mass index [BMI] 40.0-44.9, adult; R26.2 Difficulty in walking, not elsewhere classified; Z99.89 Dependence on other enabling machines and devices; Z79.84 Long term (current) use of oral hypoglycemic drugs; Z59.0 Homelessness
CPT/HCPCS: 82962

== ENCOUNTER 2022-01-11 16:16 | Inpatient (IN) | payer OTHER ==
[2022-01-11 16:56] VITALS: BMI 41.3
[2022-01-11] MEDS ORDERED: BENZOCAINE/MENTHOL (CHLORASEPTIC ) LOZENGE MM PRN (17:45)
[2022-01-11] MEDS ORDERED: chlordiazePOXIDE HCL 25 MG CAPSULE PO PRN (17:45)
[2022-01-11] MEDS ORDERED: NICOTINE POLACRILEX 2 MG GUM BUC PRN (17:45)
[2022-01-11] MEDS ORDERED: ACETAMINOPHEN 325 MG TABLET (FP) PO PRN ×2 (17:45)
[2022-01-11] MEDS ORDERED: MAG HYDROX/AL HYDROX/SIMETH 30 ML UNIT-DOSE CUP PO PRN (17:45)
[2022-01-11] MEDS ORDERED: IBUPROFEN 400 MG TABLET (FP) PO PRN (17:45)
[2022-01-11] MEDS ORDERED: BISMUTH SUBSALICYLATE 524 MG/30 ML PO PRN (17:45)
[2022-01-11] MEDS ORDERED: ONDANSETRON *ODT* 4 MG TABLET SL PRN (17:45)
[2022-01-11] MEDS ORDERED: DICYCLOMINE HCL 10 MG CAPSULE PO PRN (17:45)
[2022-01-11] MEDS ORDERED: LOPERAMIDE HCL 2 MG CAPSULE PO PRN (17:45)
[2022-01-11] MEDS ORDERED: MAGNESIUM CITRATE 300 ML BOTTLE PO PRN (17:45)
[2022-01-11] MEDS ORDERED: MAGNESIUM HYDROX 2400MG/30ML ORAL SUSPENSION 30 ML CUP PO PRN (17:45)
[2022-01-11] MEDS ORDERED: ALBUTEROL SO4 HFA INHALER IH PRN (18:42)
[2022-01-11] MEDS: chlordiazePOXIDE HCL 25 MG CAPSULE PO SCH (20:53)
[2022-01-12] MEDS: THIAMINE HCL 100 MG TABLET (FP) PO SCH ×2 (00:01→22:35)
[2022-01-12] MEDS: chlordiazePOXIDE HCL 25 MG CAPSULE PO SCH ×3 (01:43→11:03)
[2022-01-12] MEDS: PRENATAL VITAMINS W/ FOLIC ACID TABLET (FP) PO SCH (11:11)
[2022-01-12] MEDS: NICOTINE 14 MG/24 HOURS TOPICAL PATCH TD SCH (11:11)
[2022-01-12 12:09] LABS: HEMATOCRIT 40.6 % (35.4-49); HEMOGLOBIN 13.3 GM/dL (11.7-16.9); MCH 29.3 pg (25.7-33.7); MCHC 32.8 g/dl (32.0-35.9); MEAN CELL VOLUME 89.3 fl (80-96); MEAN PLT VOLUME 7.5 fl (7.5-11.1); PLATELET COUNT 308 10^3/uL (134-434); RBC 4.54 M/mm3 (4.00-5.60)
[2022-01-12 12:21] LABS: TOT PROT 6.2 g/dl (6.4-8.2)
[2022-01-12 12:25] LABS: ALBUMIN 3.3 g/dl (3.4-5.0); CALCIUM 8.3 mg/dL (8.5-10.1)
[2022-01-12 12:26] LABS: BLOOD UREA NITROGEN 15.8 mg/dL (7-18)
[2022-01-12 12:29] LABS: CREATININE 0.7 mg/dL (0.55-1.3)
[2022-01-12 12:30] LABS: BILIRUBIN,TOTAL 0.4 mg/dL (0.2-1)
[2022-01-12] MEDS: DIVALPROEX SODIUM 500 MG TABLET E.C. PO SCH ×2 (15:28→22:35)
[2022-01-12] MEDS: GABAPENTIN 400 MG CAPSULE PO SCH ×2 (15:29→22:35)
[2022-01-12] MEDS: BENZTROPINE MESYLATE 1 MG TABLET PO SCH ×2 (15:29→22:35)
[2022-01-12] MEDS: LOSARTAN POTASSIUM 25 MG TABLET PO SCH (16:02)
[2022-01-12] MEDS: HALOPERIDOL 5 MG TABLET PO SCH ×2 (16:02→22:37)
[2022-01-12] MEDS: metFORMIN HCL 500 MG TABLET (FP) PO SCH (16:24)
[2022-01-12] MEDS: INSULIN SLIDING SCALE (NOVOLOG) 1 VIAL SQ SCH (16:38)
[2022-01-12] MEDS ORDERED: INSULIN (NOVOLOG) ASPART 100 UNITS/ML 10ML VIAL ONE ×2 (16:47→22:53)
[2022-01-12] MEDS: chlordiazePOXIDE 5 MG CAPSULE PO SCH ×2 (17:25→22:34)
[2022-01-12] MEDS: MELATONIN 5 MG TABLETS PO SCH ×2 (22:36)
[2022-01-13] MEDS ORDERED: chlordiazePOXIDE HCL 25 MG CAPSULE PO SCH (05:00)
[2022-01-13] MEDS: chlordiazePOXIDE 5 MG CAPSULE PO SCH ×4 (05:46→23:10)
[2022-01-13] MEDS: INSULIN SLIDING SCALE (NOVOLOG) 1 VIAL SQ SCH ×2 (08:02→16:40)
[2022-01-13] MEDS: metFORMIN HCL 500 MG TABLET (FP) PO SCH ×2 (08:02→17:00)
[2022-01-13 08:06] LABS: SARS-CoV-2 NAA Not Detected (Not Detected)
[2022-01-13] MEDS: GABAPENTIN 400 MG CAPSULE PO SCH ×2 (10:39→22:58)
[2022-01-13] MEDS: DIVALPROEX SODIUM 500 MG TABLET E.C. PO SCH ×2 (10:40→22:59)
[2022-01-13] MEDS: BENZTROPINE MESYLATE 1 MG TABLET PO SCH ×2 (10:40→22:59)
[2022-01-13] MEDS: LOSARTAN POTASSIUM 25 MG TABLET PO SCH (10:40)
[2022-01-13] MEDS: HALOPERIDOL 5 MG TABLET PO SCH ×2 (10:40→22:59)
[2022-01-13] MEDS: PRENATAL VITAMINS W/ FOLIC ACID TABLET (FP) PO SCH (10:41)
[2022-01-13] MEDS: NICOTINE 14 MG/24 HOURS TOPICAL PATCH TD SCH (10:41)
[2022-01-13] MEDS: METHOCARBAMOL 500 MG TABLET PO PRN (18:08)
[2022-01-13] MEDS: THIAMINE HCL 100 MG TABLET (FP) PO SCH (22:58)
[2022-01-13] MEDS: MELATONIN 5 MG TABLETS PO SCH (23:01)
[2022-01-14] MEDS ORDERED: chlordiazePOXIDE HCL 10 MG CAPSULE PO PRN
[2022-01-14] MEDS: metFORMIN HCL 500 MG TABLET (FP) PO SCH ×2 (06:44→16:51)
[2022-01-14] MEDS: chlordiazePOXIDE HCL 10 MG CAPSULE PO SCH ×4 (06:45→23:16)
[2022-01-14] MEDS: INSULIN SLIDING SCALE (NOVOLOG) 1 VIAL SQ SCH ×2 (06:46→16:55)
[2022-01-14] MEDS: DIVALPROEX SODIUM 500 MG TABLET E.C. PO SCH ×2 (10:04→23:16)
[2022-01-14] MEDS: BENZTROPINE MESYLATE 1 MG TABLET PO SCH ×2 (10:04→23:16)
[2022-01-14] MEDS: GABAPENTIN 400 MG CAPSULE PO SCH ×2 (10:04→23:15)
[2022-01-14] MEDS: PRENATAL VITAMINS W/ FOLIC ACID TABLET (FP) PO SCH (10:04)
[2022-01-14] MEDS: LOSARTAN POTASSIUM 25 MG TABLET PO SCH (10:05)
[2022-01-14] MEDS: HALOPERIDOL 5 MG TABLET PO SCH ×2 (11:39→23:16)
[2022-01-14] MEDS: NICOTINE 14 MG/24 HOURS TOPICAL PATCH TD SCH (11:47)
[2022-01-14] MEDS: METHOCARBAMOL 500 MG TABLET PO PRN (17:53)
[2022-01-14] MEDS: THIAMINE HCL 100 MG TABLET (FP) PO SCH (23:16)
[2022-01-14] MEDS: MELATONIN 5 MG TABLETS PO SCH (23:17)
[2022-01-15] MEDS: metFORMIN HCL 500 MG TABLET (FP) PO SCH ×2 (06:28→16:27)
[2022-01-15] MEDS: chlordiazePOXIDE HCL 10 MG CAPSULE PO SCH ×2 (06:28→17:28)
[2022-01-15] MEDS: INSULIN SLIDING SCALE (NOVOLOG) 1 VIAL SQ SCH ×2 (07:52→17:29)
[2022-01-15] MEDS: HALOPERIDOL 5 MG TABLET PO SCH ×2 (11:06→23:45)
[2022-01-15] MEDS: PRENATAL VITAMINS W/ FOLIC ACID TABLET (FP) PO SCH (11:06)
[2022-01-15] MEDS: DIVALPROEX SODIUM 500 MG TABLET E.C. PO SCH ×2 (11:07→23:44)
[2022-01-15] MEDS: METHOCARBAMOL 500 MG TABLET PO PRN (11:07)
[2022-01-15] MEDS: GABAPENTIN 400 MG CAPSULE PO SCH ×2 (11:07→23:45)
[2022-01-15] MEDS: BENZTROPINE MESYLATE 1 MG TABLET PO SCH ×2 (11:07→23:44)
[2022-01-15] MEDS: LOSARTAN POTASSIUM 25 MG TABLET PO SCH (11:07)
[2022-01-15] MEDS: NICOTINE 14 MG/24 HOURS TOPICAL PATCH TD SCH (11:08)
[2022-01-15] MEDS: MELATONIN 5 MG TABLETS PO SCH (23:45)
[2022-01-15] MEDS: THIAMINE HCL 100 MG TABLET (FP) PO SCH (23:45)
[2022-01-16] MEDS ORDERED: chlordiazePOXIDE HCL 10 MG CAPSULE PO ONE (05:00)
[2022-01-16] MEDS: metFORMIN HCL 500 MG TABLET (FP) PO SCH (06:08)
[2022-01-16] MEDS: INSULIN SLIDING SCALE (NOVOLOG) 1 VIAL SQ SCH (06:10)
[2022-01-16 09:36] VITALS: BP 128/66; PULSE 110; TEMP 96.5
[2022-01-16] MEDS: METHOCARBAMOL 500 MG TABLET PO PRN (10:08)
[2022-01-16] MEDS: DIVALPROEX SODIUM 500 MG TABLET E.C. PO SCH (10:08)
[2022-01-16] MEDS: BENZTROPINE MESYLATE 1 MG TABLET PO SCH (10:08)
[2022-01-16] MEDS: GABAPENTIN 400 MG CAPSULE PO SCH (10:08)
[2022-01-16] MEDS: LOSARTAN POTASSIUM 25 MG TABLET PO SCH (10:09)
[2022-01-16] MEDS: PRENATAL VITAMINS W/ FOLIC ACID TABLET (FP) PO SCH (10:09)
[2022-01-16] MEDS: HALOPERIDOL 5 MG TABLET PO SCH (10:09)
[2022-01-16] MEDS: NICOTINE 14 MG/24 HOURS TOPICAL PATCH TD SCH (10:11)
== END 2022-01-16 12:28 | disposition other institution (70) | DRG 775 ==
LOC: YASAS 16:16 → Y6N 19:57
PROVIDERS: ADMIT Allergy & Immunology; ATTEND Allergy & Immunology
PROC: HZ2ZZZZ Detoxification Services for Substance Abuse Treatment (ICD-10-PCS; principal; 2022-01-11)
DX: F10.230 Alcohol dependence with withdrawal, uncomplicated (principal); F17.210 Nicotine dependence, cigarettes, uncomplicated; F25.1 Schizoaffective disorder, depressive type; F10.280 Alcohol dependence with alcohol-induced anxiety disorder; F10.282 Alcohol dependence with alcohol-induced sleep disorder; F10.24 Alcohol dependence with alcohol-induced mood disorder; F31.9 Bipolar disorder, unspecified; E78.5 Hyperlipidemia, unspecified; E03.9 Hypothyroidism, unspecified; E11.42 Type 2 diabetes mellitus with diabetic polyneuropathy; Z79.84 Long term (current) use of oral hypoglycemic drugs; I10 Essential (primary) hypertension; J45.909 Unspecified asthma, uncomplicated; Z62.810 Personal history of physical and sexual abuse in childhood; E66.01 Morbid (severe) obesity due to excess calories; Z68.41 Body mass index [BMI] 40.0-44.9, adult; Z99.89 Dependence on other enabling machines and devices; Z91.014 Allergy to mammalian meats; Z91.013 Allergy to seafood; Z59.00 Homelessness unspecified; Z56.0 Unemployment, unspecified
CPT/HCPCS: 36415; 71046-TC-FY; 80053; 82962; 85027; 86780; 87811; 93005; 93010; C9803-CS; U0003; U0005

== ENCOUNTER 2022-01-16 12:55 | Inpatient (IN) | payer OTHER ==
[2022-01-16] MEDS ORDERED: P-EPHED 60MG/TRIPROLIDI 2.5MG TABLET PO PRN (15:30)
[2022-01-16] MEDS ORDERED: MAGNESIUM HYDROX 2400MG/30ML ORAL SUSPENSION 30 ML CUP PO PRN (15:30)
[2022-01-16] MEDS ORDERED: MAGNESIUM CITRATE 300 ML BOTTLE PO PRN (15:30)
[2022-01-16] MEDS ORDERED: BENZOCAINE/MENTHOL (CHLORASEPTIC ) LOZENGE MM PRN (15:30)
[2022-01-16] MEDS ORDERED: LOPERAMIDE HCL 2 MG CAPSULE PO PRN (15:30)
[2022-01-16] MEDS ORDERED: ACETAMINOPHEN 325 MG TABLET (FP) PO PRN (15:30)
[2022-01-16] MEDS ORDERED: guaiFENesin 200 MG/10 ML 10 ML UNIT-DOSE CUPS PO PRN (15:30)
[2022-01-16] MEDS ORDERED: MAG HYDROX/AL HYDROX/SIMETH 30 ML UNIT-DOSE CUP PO PRN (15:30)
[2022-01-16] MEDS ORDERED: LOSARTAN POTASSIUM 25 MG TABLET PO ONE (15:50)
[2022-01-16] MEDS ORDERED: INSULIN SLIDING SCALE (NOVOLOG) 1 VIAL SQ SCH (16:30)
[2022-01-16] MEDS: hydrOXYzine PAMOATE 25 MG CAPSULE (FP) PO SCH ×2 (17:57→21:47)
[2022-01-16] MEDS: metFORMIN HCL 500 MG TABLET (FP) PO SCH (17:57)
[2022-01-16] MEDS: INSULIN SLIDING SCALE (NOVOLOG) 1 VIAL SQ SCH (17:58)
[2022-01-16] MEDS: GABAPENTIN 400 MG CAPSULE PO SCH (21:45)
[2022-01-16] MEDS: BENZTROPINE MESYLATE 1 MG TABLET PO SCH (21:46)
[2022-01-16] MEDS: DIVALPROEX SODIUM 500 MG TABLET E.C. PO SCH (21:46)
[2022-01-16] MEDS: HALOPERIDOL 5 MG TABLET PO SCH (21:47)
[2022-01-16] MEDS: THIAMINE HCL 100 MG TABLET (FP) PO SCH (21:47)
[2022-01-16] MEDS: MELATONIN 5 MG TABLETS PO SCH (21:47)
[2022-01-17] MEDS: metFORMIN HCL 500 MG TABLET (FP) PO SCH ×2 (06:14→17:18)
[2022-01-17] MEDS: hydrOXYzine PAMOATE 25 MG CAPSULE (FP) PO SCH ×5 (06:14→21:18)
[2022-01-17] MEDS: INSULIN SLIDING SCALE (NOVOLOG) 1 VIAL SQ SCH ×2 (06:16→17:22)
[2022-01-17] MEDS: BENZTROPINE MESYLATE 1 MG TABLET PO SCH ×2 (09:34→21:19)
[2022-01-17] MEDS: GABAPENTIN 400 MG CAPSULE PO SCH ×2 (09:35→21:19)
[2022-01-17] MEDS: DIVALPROEX SODIUM 500 MG TABLET E.C. PO SCH ×2 (09:35→21:19)
[2022-01-17] MEDS: HALOPERIDOL 5 MG TABLET PO SCH ×2 (09:35→21:19)
[2022-01-17] MEDS: LOSARTAN POTASSIUM 25 MG TABLET PO SCH (09:35)
[2022-01-17] MEDS: NICOTINE 7 MG/24 HOURS TOPICAL PATCH TD SCH (09:36)
[2022-01-17] MEDS: PRENATAL VITAMINS W/ FOLIC ACID TABLET (FP) PO SCH (09:36)
[2022-01-17] MEDS: MELATONIN 5 MG TABLETS PO SCH (21:18)
[2022-01-17] MEDS: THIAMINE HCL 100 MG TABLET (FP) PO SCH (21:18)
[2022-01-18] MEDS: metFORMIN HCL 500 MG TABLET (FP) PO SCH ×2 (06:26→17:24)
[2022-01-18] MEDS: hydrOXYzine PAMOATE 25 MG CAPSULE (FP) PO SCH ×5 (06:26→21:34)
[2022-01-18] MEDS: INSULIN SLIDING SCALE (NOVOLOG) 1 VIAL SQ SCH ×2 (06:29→17:24)
[2022-01-18] MEDS: LOSARTAN POTASSIUM 25 MG TABLET PO SCH (09:24)
[2022-01-18] MEDS: HALOPERIDOL 5 MG TABLET PO SCH ×2 (09:24→21:34)
[2022-01-18] MEDS: BENZTROPINE MESYLATE 1 MG TABLET PO SCH ×2 (09:24→21:34)
[2022-01-18] MEDS: DIVALPROEX SODIUM 500 MG TABLET E.C. PO SCH ×2 (09:24→21:34)
[2022-01-18] MEDS: GABAPENTIN 400 MG CAPSULE PO SCH ×2 (09:25→21:34)
[2022-01-18] MEDS: PRENATAL VITAMINS W/ FOLIC ACID TABLET (FP) PO SCH (09:25)
[2022-01-18] MEDS: NICOTINE 7 MG/24 HOURS TOPICAL PATCH TD SCH (09:25)
[2022-01-18] MEDS: MELATONIN 5 MG TABLETS PO SCH (21:35)
[2022-01-18] MEDS: THIAMINE HCL 100 MG TABLET (FP) PO SCH (21:35)
[2022-01-19] MEDS: hydrOXYzine PAMOATE 25 MG CAPSULE (FP) PO SCH ×5 (06:26→21:54)
[2022-01-19] MEDS: metFORMIN HCL 500 MG TABLET (FP) PO SCH ×2 (06:26→17:26)
[2022-01-19] MEDS: INSULIN SLIDING SCALE (NOVOLOG) 1 VIAL SQ SCH ×2 (06:30→17:28)
[2022-01-19] MEDS: DIVALPROEX SODIUM 500 MG TABLET E.C. PO SCH ×2 (10:12→21:52)
[2022-01-19] MEDS: LOSARTAN POTASSIUM 25 MG TABLET PO SCH (10:12)
[2022-01-19] MEDS: HALOPERIDOL 5 MG TABLET PO SCH ×2 (10:12→21:54)
[2022-01-19] MEDS: NICOTINE 7 MG/24 HOURS TOPICAL PATCH TD SCH (10:13)
[2022-01-19] MEDS: PRENATAL VITAMINS W/ FOLIC ACID TABLET (FP) PO SCH (10:13)
[2022-01-19] MEDS: GABAPENTIN 400 MG CAPSULE PO SCH ×2 (10:13→21:52)
[2022-01-19] MEDS: BENZTROPINE MESYLATE 1 MG TABLET PO SCH ×2 (10:13→21:54)
[2022-01-19] MEDS: NICOTINE 10 MG CARTRIDGE (INHALER) IH PRN (10:15)
[2022-01-19] MEDS: MELATONIN 5 MG TABLETS PO SCH (21:54)
[2022-01-19] MEDS: THIAMINE HCL 100 MG TABLET (FP) PO SCH (21:54)
[2022-01-20] MEDS: hydrOXYzine PAMOATE 25 MG CAPSULE (FP) PO SCH ×5 (06:43→21:48)
[2022-01-20] MEDS: INSULIN SLIDING SCALE (NOVOLOG) 1 VIAL SQ SCH ×2 (06:43→17:20)
[2022-01-20] MEDS: metFORMIN HCL 500 MG TABLET (FP) PO SCH ×2 (06:43→17:14)
[2022-01-20] MEDS: BENZTROPINE MESYLATE 1 MG TABLET PO SCH ×2 (09:59→21:48)
[2022-01-20] MEDS: HALOPERIDOL 5 MG TABLET PO SCH ×2 (09:59→21:48)
[2022-01-20] MEDS: PRENATAL VITAMINS W/ FOLIC ACID TABLET (FP) PO SCH (09:59)
[2022-01-20] MEDS: GABAPENTIN 400 MG CAPSULE PO SCH ×2 (09:59→21:47)
[2022-01-20] MEDS: LOSARTAN POTASSIUM 25 MG TABLET PO SCH (09:59)
[2022-01-20] MEDS: DIVALPROEX SODIUM 500 MG TABLET E.C. PO SCH ×2 (09:59→21:48)
[2022-01-20] MEDS: NICOTINE 7 MG/24 HOURS TOPICAL PATCH TD SCH (10:00)
[2022-01-20] MEDS: THIAMINE HCL 100 MG TABLET (FP) PO SCH (21:47)
[2022-01-20] MEDS: MELATONIN 5 MG TABLETS PO SCH (21:48)
[2022-01-21 00:07] LABS: SARS-CoV-2 NAA Not Detected (Not Detected)
[2022-01-21] MEDS: hydrOXYzine PAMOATE 25 MG CAPSULE (FP) PO SCH ×5 (06:41→21:02)
[2022-01-21] MEDS: metFORMIN HCL 500 MG TABLET (FP) PO SCH ×2 (06:41→17:11)
[2022-01-21] MEDS: NICOTINE 10 MG CARTRIDGE (INHALER) IH PRN ×2 (06:42→17:26)
[2022-01-21] MEDS: INSULIN SLIDING SCALE (NOVOLOG) 1 VIAL SQ SCH ×2 (06:42→17:26)
[2022-01-21] MEDS: PRENATAL VITAMINS W/ FOLIC ACID TABLET (FP) PO SCH (10:13)
[2022-01-21] MEDS: GABAPENTIN 400 MG CAPSULE PO SCH ×2 (10:14→21:01)
[2022-01-21] MEDS: NICOTINE 7 MG/24 HOURS TOPICAL PATCH TD SCH (10:14)
[2022-01-21] MEDS: LOSARTAN POTASSIUM 25 MG TABLET PO SCH (10:14)
[2022-01-21] MEDS: DIVALPROEX SODIUM 500 MG TABLET E.C. PO SCH ×2 (10:14→21:01)
[2022-01-21] MEDS: BENZTROPINE MESYLATE 1 MG TABLET PO SCH ×2 (10:14→21:01)
[2022-01-21] MEDS: HALOPERIDOL 5 MG TABLET PO SCH ×2 (10:14→21:01)
[2022-01-21] MEDS: THIAMINE HCL 100 MG TABLET (FP) PO SCH (21:02)
[2022-01-21] MEDS: MELATONIN 5 MG TABLETS PO SCH (21:02)
[2022-01-22] MEDS: INSULIN SLIDING SCALE (NOVOLOG) 1 VIAL SQ SCH ×2 (06:37→17:42)
[2022-01-22] MEDS: metFORMIN HCL 500 MG TABLET (FP) PO SCH ×2 (06:37→17:40)
[2022-01-22] MEDS: hydrOXYzine PAMOATE 25 MG CAPSULE (FP) PO SCH ×2 (06:37→10:23)
[2022-01-22] MEDS: HALOPERIDOL 5 MG TABLET PO SCH ×2 (10:22→21:17)
[2022-01-22] MEDS: GABAPENTIN 400 MG CAPSULE PO SCH ×2 (10:22→21:16)
[2022-01-22] MEDS: BENZTROPINE MESYLATE 1 MG TABLET PO SCH ×2 (10:22→21:17)
[2022-01-22] MEDS: DIVALPROEX SODIUM 500 MG TABLET E.C. PO SCH ×2 (10:22→21:16)
[2022-01-22] MEDS: PRENATAL VITAMINS W/ FOLIC ACID TABLET (FP) PO SCH (10:22)
[2022-01-22] MEDS: NICOTINE 7 MG/24 HOURS TOPICAL PATCH TD SCH (10:25)
[2022-01-22] MEDS: LOSARTAN POTASSIUM 25 MG TABLET PO SCH (10:36)
[2022-01-22] MEDS ORDERED: hydrOXYzine PAMOATE 25 MG CAPSULE (FP) PO PRN (11:57)
[2022-01-22] MEDS: NICOTINE 10 MG CARTRIDGE (INHALER) IH PRN (17:41)
[2022-01-22] MEDS: THIAMINE HCL 100 MG TABLET (FP) PO SCH (21:17)
[2022-01-22] MEDS: MELATONIN 5 MG TABLETS PO SCH (21:17)
[2022-01-23] MEDS: metFORMIN HCL 500 MG TABLET (FP) PO SCH ×2 (07:01→17:17)
[2022-01-23] MEDS: INSULIN SLIDING SCALE (NOVOLOG) 1 VIAL SQ SCH ×2 (07:02→17:17)
[2022-01-23] MEDS: BENZTROPINE MESYLATE 1 MG TABLET PO SCH ×2 (09:12→22:31)
[2022-01-23] MEDS: HALOPERIDOL 5 MG TABLET PO SCH ×2 (09:13→22:32)
[2022-01-23] MEDS: GABAPENTIN 400 MG CAPSULE PO SCH ×2 (09:13→22:32)
[2022-01-23] MEDS: LOSARTAN POTASSIUM 25 MG TABLET PO SCH (09:13)
[2022-01-23] MEDS: DIVALPROEX SODIUM 500 MG TABLET E.C. PO SCH ×2 (09:13→22:31)
[2022-01-23] MEDS: NICOTINE 7 MG/24 HOURS TOPICAL PATCH TD SCH (09:14)
[2022-01-23] MEDS: PRENATAL VITAMINS W/ FOLIC ACID TABLET (FP) PO SCH (09:14)
[2022-01-23] MEDS: MELATONIN 5 MG TABLETS PO SCH (22:32)
[2022-01-23] MEDS: THIAMINE HCL 100 MG TABLET (FP) PO SCH (22:32)
[2022-01-24] MEDS: metFORMIN HCL 500 MG TABLET (FP) PO SCH ×2 (06:17→17:18)
[2022-01-24] MEDS: INSULIN SLIDING SCALE (NOVOLOG) 1 VIAL SQ SCH ×2 (06:19→17:18)
[2022-01-24] MEDS: PRENATAL VITAMINS W/ FOLIC ACID TABLET (FP) PO SCH (09:54)
[2022-01-24] MEDS: GABAPENTIN 400 MG CAPSULE PO SCH ×2 (09:55→21:49)
[2022-01-24] MEDS: BENZTROPINE MESYLATE 1 MG TABLET PO SCH ×2 (09:55→21:50)
[2022-01-24] MEDS: HALOPERIDOL 5 MG TABLET PO SCH ×2 (09:55→21:50)
[2022-01-24] MEDS: NICOTINE 7 MG/24 HOURS TOPICAL PATCH TD SCH (09:55)
[2022-01-24] MEDS: DIVALPROEX SODIUM 500 MG TABLET E.C. PO SCH ×2 (09:55→21:50)
[2022-01-24] MEDS: LOSARTAN POTASSIUM 25 MG TABLET PO SCH (09:56)
[2022-01-24] MEDS: THIAMINE HCL 100 MG TABLET (FP) PO SCH (21:50)
[2022-01-24] MEDS: MELATONIN 5 MG TABLETS PO SCH (21:51)
[2022-01-25] MEDS: INSULIN SLIDING SCALE (NOVOLOG) 1 VIAL SQ SCH ×2 (07:15→17:00)
[2022-01-25] MEDS: metFORMIN HCL 500 MG TABLET (FP) PO SCH ×2 (07:15→16:48)
[2022-01-25] MEDS: PRENATAL VITAMINS W/ FOLIC ACID TABLET (FP) PO SCH (10:01)
[2022-01-25] MEDS: BENZTROPINE MESYLATE 1 MG TABLET PO SCH ×2 (10:01→21:42)
[2022-01-25] MEDS: DIVALPROEX SODIUM 500 MG TABLET E.C. PO SCH ×2 (10:01→21:42)
[2022-01-25] MEDS: GABAPENTIN 400 MG CAPSULE PO SCH ×2 (10:02→21:43)
[2022-01-25] MEDS: LOSARTAN POTASSIUM 25 MG TABLET PO SCH (10:02)
[2022-01-25] MEDS: HALOPERIDOL 5 MG TABLET PO SCH ×2 (10:02→21:42)
[2022-01-25] MEDS: NICOTINE 7 MG/24 HOURS TOPICAL PATCH TD SCH (10:03)
[2022-01-25] MEDS: MELATONIN 5 MG TABLETS PO SCH (21:43)
[2022-01-25] MEDS: THIAMINE HCL 100 MG TABLET (FP) PO SCH (21:43)
[2022-01-26] MEDS: metFORMIN HCL 500 MG TABLET (FP) PO SCH ×2 (06:57→17:12)
[2022-01-26] MEDS: INSULIN SLIDING SCALE (NOVOLOG) 1 VIAL SQ SCH ×2 (06:57→17:12)
[2022-01-26] MEDS: HALOPERIDOL 5 MG TABLET PO SCH ×2 (10:00→21:30)
[2022-01-26] MEDS: GABAPENTIN 400 MG CAPSULE PO SCH ×2 (10:00→21:30)
[2022-01-26] MEDS: LOSARTAN POTASSIUM 25 MG TABLET PO SCH (10:01)
[2022-01-26] MEDS: PRENATAL VITAMINS W/ FOLIC ACID TABLET (FP) PO SCH (10:01)
[2022-01-26] MEDS: BENZTROPINE MESYLATE 1 MG TABLET PO SCH ×2 (10:01→21:30)
[2022-01-26] MEDS: DIVALPROEX SODIUM 500 MG TABLET E.C. PO SCH ×2 (10:01→21:30)
[2022-01-26] MEDS: NICOTINE 10 MG CARTRIDGE (INHALER) IH PRN (10:01)
[2022-01-26] MEDS: NICOTINE 7 MG/24 HOURS TOPICAL PATCH TD SCH (10:02)
[2022-01-26] MEDS: THIAMINE HCL 100 MG TABLET (FP) PO SCH (21:30)
[2022-01-26] MEDS: MELATONIN 5 MG TABLETS PO SCH (21:30)
[2022-01-27] MEDS: metFORMIN HCL 500 MG TABLET (FP) PO SCH ×2 (06:38→16:29)
[2022-01-27] MEDS: INSULIN SLIDING SCALE (NOVOLOG) 1 VIAL SQ SCH ×2 (06:38→16:30)
[2022-01-27] MEDS: DIVALPROEX SODIUM 500 MG TABLET E.C. PO SCH ×2 (10:16→23:26)
[2022-01-27] MEDS: NICOTINE 7 MG/24 HOURS TOPICAL PATCH TD SCH (10:17)
[2022-01-27] MEDS: BENZTROPINE MESYLATE 1 MG TABLET PO SCH ×2 (10:17→23:26)
[2022-01-27] MEDS: PRENATAL VITAMINS W/ FOLIC ACID TABLET (FP) PO SCH (10:17)
[2022-01-27] MEDS: HALOPERIDOL 5 MG TABLET PO SCH ×2 (10:17→23:26)
[2022-01-27] MEDS: LOSARTAN POTASSIUM 25 MG TABLET PO SCH (10:17)
[2022-01-27] MEDS: GABAPENTIN 400 MG CAPSULE PO SCH ×2 (10:17→23:27)
[2022-01-27] MEDS: NICOTINE 10 MG CARTRIDGE (INHALER) IH PRN (13:49)
[2022-01-27] MEDS: MELATONIN 5 MG TABLETS PO SCH (23:27)
[2022-01-27] MEDS: THIAMINE HCL 100 MG TABLET (FP) PO SCH (23:27)
[2022-01-28] MEDS: INSULIN SLIDING SCALE (NOVOLOG) 1 VIAL SQ SCH ×2 (06:24→16:24)
[2022-01-28] MEDS: metFORMIN HCL 500 MG TABLET (FP) PO SCH ×2 (07:34→16:23)
[2022-01-28] MEDS: HALOPERIDOL 5 MG TABLET PO SCH ×2 (10:04→21:32)
[2022-01-28] MEDS: GABAPENTIN 400 MG CAPSULE PO SCH ×2 (10:04→21:32)
[2022-01-28] MEDS: DIVALPROEX SODIUM 500 MG TABLET E.C. PO SCH ×2 (10:04→21:32)
[2022-01-28] MEDS: BENZTROPINE MESYLATE 1 MG TABLET PO SCH ×2 (10:04→21:32)
[2022-01-28] MEDS: LOSARTAN POTASSIUM 25 MG TABLET PO SCH (10:05)
[2022-01-28] MEDS: PRENATAL VITAMINS W/ FOLIC ACID TABLET (FP) PO SCH (10:05)
[2022-01-28] MEDS: NICOTINE 7 MG/24 HOURS TOPICAL PATCH TD SCH (10:06)
[2022-01-28] MEDS: MELATONIN 5 MG TABLETS PO SCH (21:32)
[2022-01-28] MEDS: THIAMINE HCL 100 MG TABLET (FP) PO SCH (21:32)
[2022-01-29] MEDS: metFORMIN HCL 500 MG TABLET (FP) PO SCH ×2 (06:32→17:07)
[2022-01-29] MEDS: INSULIN SLIDING SCALE (NOVOLOG) 1 VIAL SQ SCH ×2 (07:20→17:13)
[2022-01-29] MEDS: HALOPERIDOL 5 MG TABLET PO SCH ×2 (10:25→21:46)
[2022-01-29] MEDS: GABAPENTIN 400 MG CAPSULE PO SCH ×2 (10:25→21:45)
[2022-01-29] MEDS: DIVALPROEX SODIUM 500 MG TABLET E.C. PO SCH ×2 (10:26→21:45)
[2022-01-29] MEDS: BENZTROPINE MESYLATE 1 MG TABLET PO SCH ×2 (10:26→21:46)
[2022-01-29] MEDS: LOSARTAN POTASSIUM 25 MG TABLET PO SCH (10:26)
[2022-01-29] MEDS: PRENATAL VITAMINS W/ FOLIC ACID TABLET (FP) PO SCH (10:27)
[2022-01-29] MEDS: NICOTINE 10 MG CARTRIDGE (INHALER) IH PRN (10:28)
[2022-01-29] MEDS: NICOTINE 7 MG/24 HOURS TOPICAL PATCH TD SCH (10:28)
[2022-01-29] MEDS ORDERED: INSULIN SLIDING SCALE (NOVOLOG) 1 VIAL SQ ONE (17:11)
[2022-01-29] MEDS: MELATONIN 5 MG TABLETS PO SCH (21:46)
[2022-01-29] MEDS: THIAMINE HCL 100 MG TABLET (FP) PO SCH (21:46)
[2022-01-30] MEDS: metFORMIN HCL 500 MG TABLET (FP) PO SCH ×2 (06:33→16:49)
[2022-01-30] MEDS: INSULIN SLIDING SCALE (NOVOLOG) 1 VIAL SQ SCH ×2 (06:33→16:53)
[2022-01-30] MEDS: BENZTROPINE MESYLATE 1 MG TABLET PO SCH ×2 (09:56→21:26)
[2022-01-30] MEDS: GABAPENTIN 400 MG CAPSULE PO SCH ×2 (09:56→21:27)
[2022-01-30] MEDS: DIVALPROEX SODIUM 500 MG TABLET E.C. PO SCH ×2 (09:56→21:26)
[2022-01-30] MEDS: LOSARTAN POTASSIUM 25 MG TABLET PO SCH (09:56)
[2022-01-30] MEDS: PRENATAL VITAMINS W/ FOLIC ACID TABLET (FP) PO SCH (09:56)
[2022-01-30] MEDS: HALOPERIDOL 5 MG TABLET PO SCH ×2 (09:57→21:26)
[2022-01-30] MEDS: NICOTINE 7 MG/24 HOURS TOPICAL PATCH TD SCH (09:58)
[2022-01-30] MEDS: NICOTINE 10 MG CARTRIDGE (INHALER) IH PRN (13:08)
[2022-01-30] MEDS ORDERED: INSULIN SLIDING SCALE (NOVOLOG) 1 VIAL SQ ONE (16:51)
[2022-01-30] MEDS: THIAMINE HCL 100 MG TABLET (FP) PO SCH (21:27)
[2022-01-30] MEDS: MELATONIN 5 MG TABLETS PO SCH (21:27)
[2022-01-31] MEDS: metFORMIN HCL 500 MG TABLET (FP) PO SCH ×2 (06:31→16:30)
[2022-01-31] MEDS: INSULIN SLIDING SCALE (NOVOLOG) 1 VIAL SQ SCH ×2 (06:31→16:31)
[2022-01-31] MEDS: GABAPENTIN 400 MG CAPSULE PO SCH ×2 (09:42→21:52)
[2022-01-31] MEDS: NICOTINE 7 MG/24 HOURS TOPICAL PATCH TD SCH (09:42)
[2022-01-31] MEDS: BENZTROPINE MESYLATE 1 MG TABLET PO SCH ×2 (09:42→21:52)
[2022-01-31] MEDS: PRENATAL VITAMINS W/ FOLIC ACID TABLET (FP) PO SCH (09:42)
[2022-01-31] MEDS: HALOPERIDOL 5 MG TABLET PO SCH ×2 (09:42→21:52)
[2022-01-31] MEDS: DIVALPROEX SODIUM 500 MG TABLET E.C. PO SCH ×2 (09:42→21:52)
[2022-01-31] MEDS: LOSARTAN POTASSIUM 25 MG TABLET PO SCH (09:42)
[2022-01-31] MEDS: IBUPROFEN 400 MG TABLET (FP) PO PRN ×2 (16:30→22:45)
[2022-01-31] MEDS: THIAMINE HCL 100 MG TABLET (FP) PO SCH (21:52)
[2022-01-31] MEDS: MELATONIN 5 MG TABLETS PO SCH (21:52)
[2022-02-01] MEDS: IBUPROFEN 400 MG TABLET (FP) PO PRN ×3 (06:40→22:30)
[2022-02-01] MEDS: INSULIN SLIDING SCALE (NOVOLOG) 1 VIAL SQ SCH ×2 (06:44→16:30)
[2022-02-01] MEDS: metFORMIN HCL 500 MG TABLET (FP) PO SCH ×2 (07:02→16:29)
[2022-02-01] MEDS: DIVALPROEX SODIUM 500 MG TABLET E.C. PO SCH ×2 (09:41→21:18)
[2022-02-01] MEDS: GABAPENTIN 400 MG CAPSULE PO SCH ×2 (09:41→21:18)
[2022-02-01] MEDS: NICOTINE 7 MG/24 HOURS TOPICAL PATCH TD SCH (09:41)
[2022-02-01] MEDS: BENZTROPINE MESYLATE 1 MG TABLET PO SCH ×2 (09:41→21:18)
[2022-02-01] MEDS: LOSARTAN POTASSIUM 25 MG TABLET PO SCH (09:41)
[2022-02-01] MEDS: HALOPERIDOL 5 MG TABLET PO SCH ×2 (09:41→21:18)
[2022-02-01] MEDS: PRENATAL VITAMINS W/ FOLIC ACID TABLET (FP) PO SCH (09:41)
[2022-02-01] MEDS: METHOCARBAMOL 500 MG TABLET PO PRN (16:29)
[2022-02-01] MEDS: THIAMINE HCL 100 MG TABLET (FP) PO SCH (21:18)
[2022-02-01] MEDS: MELATONIN 5 MG TABLETS PO SCH (21:18)
[2022-02-02] MEDS: metFORMIN HCL 500 MG TABLET (FP) PO SCH ×2 (06:15→17:18)
[2022-02-02] MEDS: IBUPROFEN 400 MG TABLET (FP) PO PRN ×3 (06:16→22:54)
[2022-02-02] MEDS: INSULIN SLIDING SCALE (NOVOLOG) 1 VIAL SQ SCH ×2 (07:41→17:30)
[2022-02-02] MEDS: PRENATAL VITAMINS W/ FOLIC ACID TABLET (FP) PO SCH (09:42)
[2022-02-02] MEDS: HALOPERIDOL 5 MG TABLET PO SCH ×2 (09:43→21:07)
[2022-02-02] MEDS: BENZTROPINE MESYLATE 1 MG TABLET PO SCH ×2 (09:43→21:07)
[2022-02-02] MEDS: GABAPENTIN 400 MG CAPSULE PO SCH ×2 (09:43→21:08)
[2022-02-02] MEDS: NICOTINE 7 MG/24 HOURS TOPICAL PATCH TD SCH (09:44)
[2022-02-02] MEDS: NICOTINE 10 MG CARTRIDGE (INHALER) IH PRN (09:46)
[2022-02-02] MEDS: LOSARTAN POTASSIUM 25 MG TABLET PO SCH (11:16)
[2022-02-02] MEDS: DIVALPROEX SODIUM 500 MG TABLET E.C. PO SCH ×2 (11:16→21:08)
[2022-02-02] MEDS: METHOCARBAMOL 500 MG TABLET PO PRN (11:18)
[2022-02-02] MEDS ORDERED: INSULIN SLIDING SCALE (NOVOLOG) 1 VIAL SQ ONE (17:27)
[2022-02-02 20:48] VITALS: TEMP 96.7
[2022-02-02] MEDS: THIAMINE HCL 100 MG TABLET (FP) PO SCH (21:08)
[2022-02-02] MEDS: MELATONIN 5 MG TABLETS PO SCH (21:08)
[2022-02-02] MEDS ORDERED: ASPIRIN 81 MG CHEWABLE TABLETS PO ONE (22:42)
[2022-02-02 23:36] VITALS: BP 147/90; PULSE 118
== END 2022-02-03 04:12 | disposition short-term general hospital (02) | DRG 772 ==
LOC: YASAS 12:55 → Y3W 12:57 → Y5N 01-20 17:40 → Y3W 01-20 17:42
PROVIDERS: ADMIT Allergy & Immunology; ATTEND Allergy & Immunology
PROC: HZ42ZZZ Group Counseling for Substance Abuse Treatment, Cognitive-Behavioral (ICD-10-PCS; principal; 2022-01-16)
DX: F10.20 Alcohol dependence, uncomplicated (principal); F17.210 Nicotine dependence, cigarettes, uncomplicated; F31.9 Bipolar disorder, unspecified; F20.9 Schizophrenia, unspecified; M79.642 Pain in left hand; I10 Essential (primary) hypertension; E11.9 Type 2 diabetes mellitus without complications; Z79.84 Long term (current) use of oral hypoglycemic drugs; Z59.00 Homelessness unspecified; Z56.0 Unemployment, unspecified
CPT/HCPCS: 82962; 93005; 93010; C9803-CS; U0003; U0005

== ENCOUNTER 2022-02-04 14:27 | Inpatient (IN) | payer OTHER ==
[2022-02-04] MEDS ORDERED: IBUPROFEN 400 MG TABLET (FP) PO PRN (16:23)
[2022-02-04] MEDS ORDERED: LOPERAMIDE HCL 2 MG CAPSULE PO PRN (16:23)
[2022-02-04] MEDS ORDERED: hydrOXYzine PAMOATE 25 MG CAPSULE (FP) PO PRN (16:23)
[2022-02-04] MEDS ORDERED: ACETAMINOPHEN 325 MG TABLET (FP) PO PRN (16:23)
[2022-02-04] MEDS ORDERED: P-EPHED 60MG/TRIPROLIDI 2.5MG TABLET PO PRN (16:23)
[2022-02-04] MEDS ORDERED: BENZOCAINE/MENTHOL (CHLORASEPTIC ) LOZENGE MM PRN (16:23)
[2022-02-04] MEDS ORDERED: MAGNESIUM HYDROX 2400MG/30ML ORAL SUSPENSION 30 ML CUP PO PRN (16:23)
[2022-02-04] MEDS ORDERED: MAGNESIUM CITRATE 300 ML BOTTLE PO PRN (16:23)
[2022-02-04] MEDS ORDERED: guaiFENesin 200 MG/10 ML 10 ML UNIT-DOSE CUPS PO PRN (16:23)
[2022-02-04] MEDS ORDERED: MAG HYDROX/AL HYDROX/SIMETH 30 ML UNIT-DOSE CUP PO PRN (16:23)
[2022-02-04 18:15] VITALS: BMI 41.1
[2022-02-04] MEDS: INSULIN SLIDING SCALE (NOVOLOG) 1 VIAL SQ SCH ×2 (20:34→21:14)
[2022-02-04] MEDS: THIAMINE HCL 100 MG TABLET (FP) PO SCH (21:10)
[2022-02-04] MEDS: MELATONIN 5 MG TABLETS PO SCH (21:10)
[2022-02-04] MEDS: ATORVASTATIN CA 20 MG TABLET (FP) PO SCH (21:12)
[2022-02-04] MEDS: LIDOCAINE PATCH REMOVAL MC SCH (21:41)
[2022-02-04] MEDS: CELECOXIB 200 MG CAPSULE PO SCH (22:36)
[2022-02-05] MEDS: INSULIN SLIDING SCALE (NOVOLOG) 1 VIAL SQ SCH ×4 (06:59→21:18)
[2022-02-05] MEDS ORDERED: INSULIN SLIDING SCALE (NOVOLOG) 1 VIAL SQ ONE (06:59)
[2022-02-05] MEDS ORDERED: LIDOCAINE 5% TOPICAL PATCH TP SCH (10:00)
[2022-02-05] MEDS ORDERED: PATIENT'S OWN MEDICATION (NON-FORMULARY) (Gabapentin [Gabapentin] 600 MG Tablet) PO SCH (10:15)
[2022-02-05] MEDS ORDERED: HALOPERIDOL 5 MG TABLET PO ONE (10:35)
[2022-02-05] MEDS: GABAPENTIN 400 MG CAPSULE PO SCH ×2 (11:13→21:14)
[2022-02-05] MEDS: DIVALPROEX SODIUM 500 MG TABLET E.C. PO SCH ×2 (11:13→21:14)
[2022-02-05] MEDS: LIDOCAINE 5% TOPICAL PATCH TP SCH (11:13)
[2022-02-05] MEDS: PRENATAL VITAMINS W/ FOLIC ACID TABLET (FP) PO SCH (11:14)
[2022-02-05] MEDS: BENZTROPINE MESYLATE 1 MG TABLET PO SCH ×2 (11:23→21:14)
[2022-02-05] MEDS: ATORVASTATIN CA 20 MG TABLET (FP) PO SCH (21:14)
[2022-02-05] MEDS: CELECOXIB 200 MG CAPSULE PO SCH (21:14)
[2022-02-05] MEDS: HALOPERIDOL 5 MG TABLET PO SCH (21:15)
[2022-02-05] MEDS: MELATONIN 5 MG TABLETS PO SCH (21:15)
[2022-02-05] MEDS: THIAMINE HCL 100 MG TABLET (FP) PO SCH (21:15)
[2022-02-05] MEDS: LIDOCAINE PATCH REMOVAL MC SCH (22:45)
[2022-02-06] MEDS: INSULIN SLIDING SCALE (NOVOLOG) 1 VIAL SQ SCH ×4 (06:43→21:15)
[2022-02-06] MEDS: HALOPERIDOL 5 MG TABLET PO SCH ×2 (09:52→21:12)
[2022-02-06] MEDS: GABAPENTIN 400 MG CAPSULE PO SCH ×2 (09:53→21:12)
[2022-02-06] MEDS: BENZTROPINE MESYLATE 1 MG TABLET PO SCH ×2 (09:53→21:12)
[2022-02-06] MEDS: DIVALPROEX SODIUM 500 MG TABLET E.C. PO SCH ×2 (09:53→21:12)
[2022-02-06] MEDS: PRENATAL VITAMINS W/ FOLIC ACID TABLET (FP) PO SCH (09:54)
[2022-02-06] MEDS: LOSARTAN POTASSIUM 25 MG TABLET PO SCH (11:35)
[2022-02-06] MEDS: LIDOCAINE 5% TOPICAL PATCH TP SCH (11:35)
[2022-02-06] MEDS ORDERED: INSULIN SLIDING SCALE (NOVOLOG) 1 VIAL SQ ONE ×2 (16:59→22:18)
[2022-02-06] MEDS: metFORMIN HCL 500 MG TABLET (FP) PO SCH (16:59)
[2022-02-06] MEDS: THIAMINE HCL 100 MG TABLET (FP) PO SCH (21:12)
[2022-02-06] MEDS: MELATONIN 5 MG TABLETS PO SCH (21:12)
[2022-02-06] MEDS: ATORVASTATIN CA 20 MG TABLET (FP) PO SCH (21:12)
[2022-02-06] MEDS: CELECOXIB 200 MG CAPSULE PO SCH (21:12)
[2022-02-06] MEDS: LIDOCAINE PATCH REMOVAL MC SCH (21:15)
[2022-02-07] MEDS: metFORMIN HCL 500 MG TABLET (FP) PO SCH ×2 (06:39→17:14)
[2022-02-07] MEDS: INSULIN SLIDING SCALE (NOVOLOG) 1 VIAL SQ SCH ×4 (08:01→22:15)
[2022-02-07] MEDS: HALOPERIDOL 5 MG TABLET PO SCH ×2 (10:29→22:14)
[2022-02-07] MEDS: PRENATAL VITAMINS W/ FOLIC ACID TABLET (FP) PO SCH (10:29)
[2022-02-07] MEDS: GABAPENTIN 400 MG CAPSULE PO SCH ×2 (10:30→22:14)
[2022-02-07] MEDS: LOSARTAN POTASSIUM 25 MG TABLET PO SCH (10:30)
[2022-02-07] MEDS: DIVALPROEX SODIUM 500 MG TABLET E.C. PO SCH ×2 (10:30→22:14)
[2022-02-07] MEDS: BENZTROPINE MESYLATE 1 MG TABLET PO SCH ×2 (10:30→22:15)
[2022-02-07] MEDS: LIDOCAINE 5% TOPICAL PATCH TP SCH (10:31)
[2022-02-07] MEDS: ATORVASTATIN CA 20 MG TABLET (FP) PO SCH (22:14)
[2022-02-07] MEDS: CELECOXIB 200 MG CAPSULE PO SCH (22:14)
[2022-02-07] MEDS: LIDOCAINE PATCH REMOVAL MC SCH (22:15)
[2022-02-07] MEDS: THIAMINE HCL 100 MG TABLET (FP) PO SCH (22:15)
[2022-02-07] MEDS: MELATONIN 5 MG TABLETS PO SCH (22:15)
[2022-02-08] MEDS: metFORMIN HCL 500 MG TABLET (FP) PO SCH ×2 (06:45→17:31)
[2022-02-08] MEDS: INSULIN SLIDING SCALE (NOVOLOG) 1 VIAL SQ SCH ×4 (07:46→23:27)
[2022-02-08] MEDS: LOSARTAN POTASSIUM 25 MG TABLET PO SCH (10:32)
[2022-02-08] MEDS: DIVALPROEX SODIUM 500 MG TABLET E.C. PO SCH ×2 (10:32→23:26)
[2022-02-08] MEDS: HALOPERIDOL 5 MG TABLET PO SCH ×2 (10:32→23:26)
[2022-02-08] MEDS: PRENATAL VITAMINS W/ FOLIC ACID TABLET (FP) PO SCH (10:32)
[2022-02-08] MEDS: GABAPENTIN 400 MG CAPSULE PO SCH ×2 (10:32→23:27)
[2022-02-08] MEDS: BENZTROPINE MESYLATE 1 MG TABLET PO SCH ×2 (10:32→23:26)
[2022-02-08] MEDS: LIDOCAINE 5% TOPICAL PATCH TP SCH (10:33)
[2022-02-08] MEDS ORDERED: NICOTINE 10 MG CARTRIDGE (INHALER) IH PRN (15:50)
[2022-02-08] MEDS ORDERED: NICOTINE POLACRILEX 2 MG GUM BUC PRN (15:51)
[2022-02-08] MEDS: CELECOXIB 200 MG CAPSULE PO SCH (23:26)
[2022-02-08] MEDS: THIAMINE HCL 100 MG TABLET (FP) PO SCH (23:27)
[2022-02-08] MEDS: ATORVASTATIN CA 20 MG TABLET (FP) PO SCH (23:27)
[2022-02-08] MEDS: LIDOCAINE PATCH REMOVAL MC SCH (23:27)
[2022-02-08] MEDS: MELATONIN 5 MG TABLETS PO SCH (23:27)
[2022-02-09] MEDS: INSULIN SLIDING SCALE (NOVOLOG) 1 VIAL SQ SCH ×4 (06:52→23:29)
[2022-02-09] MEDS: metFORMIN HCL 500 MG TABLET (FP) PO SCH ×2 (06:53→16:44)
[2022-02-09] MEDS: PRENATAL VITAMINS W/ FOLIC ACID TABLET (FP) PO SCH (10:29)
[2022-02-09] MEDS: DIVALPROEX SODIUM 500 MG TABLET E.C. PO SCH ×2 (10:30→23:29)
[2022-02-09] MEDS: HALOPERIDOL 5 MG TABLET PO SCH ×2 (10:30→23:29)
[2022-02-09] MEDS: LOSARTAN POTASSIUM 25 MG TABLET PO SCH (10:30)
[2022-02-09] MEDS: BENZTROPINE MESYLATE 1 MG TABLET PO SCH ×2 (10:30→23:29)
[2022-02-09] MEDS: GABAPENTIN 400 MG CAPSULE PO SCH ×2 (10:30→23:29)
[2022-02-09] MEDS: LIDOCAINE 5% TOPICAL PATCH TP SCH (10:32)
[2022-02-09] MEDS: LIDOCAINE PATCH REMOVAL MC SCH (23:28)
[2022-02-09] MEDS: THIAMINE HCL 100 MG TABLET (FP) PO SCH (23:29)
[2022-02-09] MEDS: MELATONIN 5 MG TABLETS PO SCH (23:29)
[2022-02-09] MEDS: ATORVASTATIN CA 20 MG TABLET (FP) PO SCH (23:29)
[2022-02-10] MEDS ORDERED: ALBUTEROL SO4 HFA INHALER IH PRN (00:38)
[2022-02-10] MEDS: metFORMIN HCL 500 MG TABLET (FP) PO SCH (05:59)
[2022-02-10] MEDS: INSULIN SLIDING SCALE (NOVOLOG) 1 VIAL SQ SCH (06:00)
[2022-02-10 07:01] VITALS: BP 150/93; PULSE 121; TEMP 96.9
[2022-02-10] MEDS: DIVALPROEX SODIUM 500 MG TABLET E.C. PO SCH (09:54)
[2022-02-10] MEDS: BENZTROPINE MESYLATE 1 MG TABLET PO SCH (09:54)
[2022-02-10] MEDS: LOSARTAN POTASSIUM 25 MG TABLET PO SCH (09:54)
[2022-02-10] MEDS: HALOPERIDOL 5 MG TABLET PO SCH (09:55)
[2022-02-10] MEDS: PRENATAL VITAMINS W/ FOLIC ACID TABLET (FP) PO SCH (09:56)
[2022-02-10] MEDS: GABAPENTIN 400 MG CAPSULE PO SCH (09:56)
[2022-02-10] MEDS: LIDOCAINE 5% TOPICAL PATCH TP SCH (09:56)
== END 2022-02-10 10:52 | disposition home or self-care (01) | DRG 772 ==
LOC: YASAS 14:27 → Y3W 17:20
PROVIDERS: ADMIT Allergy & Immunology; ATTEND Allergy & Immunology
PROC: HZ42ZZZ Group Counseling for Substance Abuse Treatment, Cognitive-Behavioral (ICD-10-PCS; principal; 2022-02-04)
DX: F10.20 Alcohol dependence, uncomplicated (principal); F14.20 Cocaine dependence, uncomplicated; F17.210 Nicotine dependence, cigarettes, uncomplicated; F25.1 Schizoaffective disorder, depressive type; F31.9 Bipolar disorder, unspecified; I10 Essential (primary) hypertension; E11.42 Type 2 diabetes mellitus with diabetic polyneuropathy; Z79.4 Long term (current) use of insulin; J44.9 Chronic obstructive pulmonary disease, unspecified; E03.9 Hypothyroidism, unspecified; M25.512 Pain in left shoulder; E66.01 Morbid (severe) obesity due to excess calories; Z68.41 Body mass index [BMI] 40.0-44.9, adult; Z99.89 Dependence on other enabling machines and devices; Z91.013 Allergy to seafood; Z91.014 Allergy to mammalian meats; Z56.0 Unemployment, unspecified; Z59.00 Homelessness unspecified
CPT/HCPCS: 36415; 71045-TC-FY; 73030-TC-LT-FY; 73200-TC-RT; 80048; 80053; 81003; 82962; 85025; 85027; 85610; 85651; 85730; 86140; 87040; 87086; 93005; 93010; 97116-GP; 97161-GP; C9803-CS; G0378; U0003; U0005